=== PATIENT | female | born 2000 | race Caucasian/White ===

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

== ENCOUNTER → 2022-02-02 16:29 | Outpatient (CLI) | payer BC, OTHER, SELFPAY ==
[2022-02-02 18:21] LABS: Basophils # 0.1 K/mm3 (0-0.2); Basophils % 0.7 % (0.1-2.0); Eosinophils # 0.2 K/mm3 (0.0-0.4); Eosinophils % 1.6 % (0.1-12.0); Hematocrit 40.6 % (37.0-47.0); Hemoglobin 12.4 g/dL (12.2-16.2); Lymphocytes # 3.4 K/mm3 (0.7-4.5); Lymphocytes % 28.7 % (10-50); Mean Corpuscular HGB Conc 30.6 g/dL (31.8-35.4); Mean Corpuscular Volume 91.4 fl (81-99); Mean Platelet Volume 7.2 fl (7.4-10.4); Monocytes # 0.6 K/mm3 (0.1-1.0); Monocytes % 4.9 % (1.7-9.3); Neutrophils # 7.7 K/mm3 (1.8-7.8); Neutrophils % 64.2 % (37.0-80.0); Platelet Count 461 K/mm3 (142-424); Red Blood Count 4.45 M/mm3 (4.20-5.40); Red Cell Distribution Width 13.9 % (11.5-17.5); White Blood Count 11.9 K/mm3 (4.5-13.0)
[2022-02-02 20:44] LABS: Alanine Aminotransferase 24 U/L (12-78); Albumin/Globulin Ratio 1.4 (1.1-1.8); Alkaline Phosphatase 109 U/L (38-126); Anion Gap 16.5 mEq/L (5-15); Aspartate Amino Transferase 29 U/L (14-36); Blood Urea Nitrogen 19 mg/dl (7-17); Calcium 8.9 mg/dl (8.4-10.2); Carbon Dioxide 28 mmol/L (22.0-30.0); Chloride 98 mmol/L (98-107); Estimated Glomerular Filt Rate 80 ml/min (>60); GFR (African American) 97 ML/MIN (>60); Globulin 2.9 g/dL (1.3-3.2); Glucose 95 mg/dl (74-100); Potassium 4.5 mmoL/L (3.5-5.1); Sodium 138 mmol/L (136-145); Total Protein,Serum 6.9 g/dl (6.3-8.2)
[2022-02-02 20:54] LABS: Bilirubin,Total < 0.1 mg/dl (0.2-1.3)
[2022-02-02 20:55] LABS: Free T4 (Free Thyroxine) 1.42 ng/dl (0.78-2.19)
[2022-02-02 20:56] LABS: Hemoglobin A1C 5.7 % (4.0-6.0)
[2022-02-02 21:03] LABS: 25-OH Vitamin D, Total 69.3 ng/mL (30-100)
[2022-02-02 21:11] LABS: Thyroid Stimulating Hormone 1.68 uIU/mL (0.465-4.68)
[2022-02-02 21:29] LABS: Vitamin B12 323 pg/mL (239-931)
== END ==
PROVIDERS: PCP Nurse Practitioner Family; Visit Provider Nurse Practitioner Family
DX: R53.83 Other fatigue (principal); K75.81 Nonalcoholic steatohepatitis (NASH); E55.9 Vitamin D deficiency, unspecified; R73.03 Prediabetes
CPT/HCPCS: 36415; 80053; 82306; 82607; 83036; 84439; 84443; 85025

== ENCOUNTER 2022-04-14 06:03 | Emergency (ER) | payer BC, OTHER, SELFPAY ==
[2022-04-14 06:24] VITALS: BP 114/81; PULSE 85; RESP 16; TEMP 36.6; O2SAT 99; BMI 44.6
[2022-04-14 06:30] VITALS: BP 116/83; PULSE 72; O2SAT 99
--- NOTE | 2022-04-14 06:33 | XR_ITS ---
PROCEDURE INFORMATION: Exam: XR Chest Exam date and time: 04/14/2022 7:27 AM Age: 22 years old Clinical indication: Chest wall pain; Additional info: Fall TECHNIQUE: Imaging protocol: Radiologic exam of the chest. Views: 2 views. COMPARISON: CR XR CHEST 2V 08/28/2021 4:26 PM FINDINGS: Lungs: Unremarkable. No consolidation. Pleural spaces: Unremarkable. No pleural effusion. No pneumothorax. Heart/Mediastinum: Unremarkable. No cardiomegaly. Bones/joints: Unremarkable. IMPRESSION: No acute findings.
--- NOTE | 2022-04-14 06:34 | CT_ITS ---
PROCEDURE INFORMATION: Exam: CT Lumbar Spine Without Contrast Exam date and time: 04/14/2022 7:21 AM Age: 22 years old Clinical indication: Low back pain; Additional info: Fall TECHNIQUE: Imaging protocol: Computed tomography of the lumbar spine without contrast. Radiation optimization: All CT scans at this facility use at least one of these dose optimization techniques: automated exposure control; mA and/or kV adjustment per patient size (includes targeted exams where dose is matched to clinical indication); or iterative reconstruction. COMPARISON: US ABDOMEN LIMITED 01/15/2021 8:28 AM FINDINGS: Bones/joints: Acute anterior superior L1 compression fracture with 20% loss of height. Normal alignment. L1-L2: No significant disc protrusion. No severe spinal canal stenosis. No significant neural foraminal narrowing. L2-L3: No significant disc protrusion. No severe spinal canal stenosis. No significant neural foraminal narrowing. L3-L4: No significant disc protrusion. No severe spinal canal stenosis. No significant neural foraminal narrowing. L4-L5: No significant disc protrusion. No severe spinal canal stenosis. No significant neural foraminal narrowing. L5-S1: No significant disc protrusion. No severe spinal canal stenosis. No significant neural foraminal narrowing. Soft tissues: Unremarkable. IMPRESSION: Acute L1 compression fracture described above.
--- NOTE | 2022-04-14 06:34 | CT_ITS ---
PROCEDURE INFORMATION: Exam: CT Pelvis Without Contrast; Skeletal Exam date and time: 04/14/2022 7:28 AM Age: 22 years old Clinical indication: Pelvic pain; Additional info: Fall TECHNIQUE: Imaging protocol: Computed tomography of the pelvis without contrast. Exam focused on the skeleton. Radiation optimization: All CT scans at this facility use at least one of these dose optimization techniques: automated exposure control; mA and/or kV adjustment per patient size (includes targeted exams where dose is matched to clinical indication); or iterative reconstruction. COMPARISON: CT LUMBAR SPINE WO CON 04/14/2022 7:21 AM FINDINGS: Bones/joints: Unremarkable. No acute fracture. No dislocation. Soft tissues: Unremarkable. IMPRESSION: No acute findings.
[2022-04-14 06:38] LABS: Microscopic, Urine URINE MICROSCOPIC (MICROSCOPIC)
[2022-04-14 06:45] LABS: Appearance,Urine SL CLOUDY (Clear); Blood, Urine Negative (Negative); Color,Urine YELLOW (Yellow); Glucose,Urine (UA) Negative (Negative); Ketones,Urine Negative (Negative); Leukocyte Esterase,Urine TRACE (Negative); Nitrate,Urine Negative (Negative); PH,Urine 5.5 (5.0-8.5); Protein,Urine TRACE (Negative); Specific Gravity, Urine >= 1.030 (1.005-1.030); Urobilinogen,Urine 0.2 EU/dl (0.2)
[2022-04-14 06:51] LABS: Urine Pregnancy, HCG Qual. Negative (Negative)
[2022-04-14 06:54] LABS: Bilirubin,Urine 1+ (Negative)
[2022-04-14 06:57] LABS: RBC,Urine Occasional #/hpf (0-3)
[2022-04-14 06:58] LABS: Bacteria,Urine 2+ /lpf
[2022-04-14 07:00] VITALS: PULSE 80; O2SAT 97
--- NOTE | 2022-04-14 07:13 | HMH.EDFALL ---
Discharge Plan Disposition Patient Disposition: Home, Self-Care Chief Complaint: Fall Prescriptions Prescriptions: No Action levocetirizine [Xyzal] 2.5 mg/5 mL solution 5 mg PO QHS PRN bupropion HCl 150 mg tablet extended release 24 hr 150 mg PO DAILY Slow Fe 142 mg (45 mg iron) tablet extended release 284 mg PO DAILY ergocalciferol (vitamin D2) 1,250 mcg (50,000 unit) capsule 1,250 mcg PO WEEKLY norgestimate-ethinyl estradiol [Tri-Sprintec (28)] 0.18/0.215/0.25 mg-35 mcg (28) tablet 1 tab PO DAILY pioglitazone-metformin 15-500 mg tablet 1 tab PO DAILY sucralfate [Carafate] 1 gram tablet 1 g PO BID calcium polycarbophil [FiberCon] 625 mg tablet 1,250 mg PO DAILY ijjgzatrfkfbcfi-eehhpzszj-VE 118 ML syrup 5 ml PO Q6HP PRN (Reason: Cough) Qty: 240 0RF Referrals Follow up/Referrals: Manisha Dhillon APRN [Primary Care Provider] - See instructions Francisco Javier Knox MD [Staff Physician] - See instructions Clinical Impressions Clinical Impression: Closed compression fracture of lumbar vertebra Instructions Patient Instructions: DI for Vertebral Fracture Discharge ED Provider: Kenny Wakefield Fall HPI General Chief Complaint: Fall Stated Complaint: Low back pain; Fell AO 0545 Time Seen by Provider: 04/14/22 07:13 Mode of Arrival: Ambulatory Source of Information: Patient Limitations: No Limitations Description of Symptoms (Recalled from ER Triage Doc. by RN): pt stated that she slipped and fell on ice hit her but but states she is having pain up to mid back 12/31 pt states she has mild disc degenerative disease History of Present Illness HPI Narrative: slipped on ice and fell on back with pain - no loc - MD complaint: fall Onset (ago): hour(s) Fall from: standing Fall witnessed: no Place fall occurred: home Loss of consciousness: none Prolonged down time: no Symptoms prior to fall: none Context: tripped/slipped Location of injury: back and buttocks Severity: moderate Associated symptoms (after fall): denies Related Data Home Medications Medication Instructions Recorded Confirmed levocetirizine 2.5 mg/5 mL oral 5 mg PO QHS PRN 11/06/20 08/13/21 solution (Xyzal) norgestimate-ethinyl estradiol 1 tab PO DAILY 11/06/20 08/13/21 0.18 mg/0.215mg/0.25mg-35 mcg(28)tablet (Tri-Sprintec (28)) bupropion HCl 150 mg 24 hr tablet, 150 mg PO DAILY 01/09/21 08/13/21 extended release ergocalciferol (vitamin D2) 1,250 1,250 mcg PO WEEKLY 01/09/21 08/13/21 mcg (50,000 unit) capsule ferrous sulfate 142 mg (45 mg 284 mg PO DAILY 01/09/21 08/13/21 iron) tablet,extended release (Slow Fe) calcium polycarbophil 625 mg 1,250 mg PO DAILY 08/13/21 08/13/21 tablet (FiberCon) pioglitazone 15 mg-metformin 500 1 tab PO DAILY 08/13/21 08/13/21 mg tablet sucralfate 1 gram tablet (Carafate) 1 g PO BID 08/13/21 08/13/21 Previous Rx's Medication Instructions Recorded slvalctnmatnnzr-meykainjhiqdzkz-QB 5 ml PO Q6HP PRN Cough #240 mL 05/20/21 2 mg-30 mg-10 mg/5 mL oral syrup Allergies Allergy/AdvReac Type Severity Reaction Status Date / Time No Known Allergies Allergy Verified 08/13/21 15:58 PFSH PFSH Social History Smoking Status: Current every day smoker alcohol intake: never substance use type: denies use current occupational status: employed Travel in the last 8 weeks: None household members: family housing: house number of children: 0 ROS Obtained: Yes All systems reviewed & no additional complaints except as documented Physical Exam General General appearance: alert Head Head exam: normocephalic Eye Eye exam: Present PERRL and EOMI ENT ENT exam: Present mucous membranes moist Neck Neck exam: Present trachea midline Respiratory Respiratory exam: Present normal lung sounds bilaterally; Absent respiratory distress Cardiovascular Cardiovascular exam: Present regular rate Abdominal Exam Abdominal exam: Present
--- NOTE | 2022-04-14 07:17 | CT_ITS ---
PROCEDURE INFORMATION: Exam: CT Thoracic Spine Without Contrast Exam date and time: 04/14/2022 7:24 AM Age: 22 years old Clinical indication: Pain in thoracic spine; Additional info: Fall TECHNIQUE: Imaging protocol: Computed tomography of the thoracic spine without contrast. Radiation optimization: All CT scans at this facility use at least one of these dose optimization techniques: automated exposure control; mA and/or kV adjustment per patient size (includes targeted exams where dose is matched to clinical indication); or iterative reconstruction. COMPARISON: CR XR THORACIC SPINE 3V 12/16/2020 2:58 PM FINDINGS: Bones/joints: Acute anterior superior L1 compression fracture with 20% loss of height. Normal alignment. T1-T2: No significant disc protrusion. No severe spinal canal stenosis. No significant neural foraminal narrowing. T2-T3: No significant disc protrusion. No severe spinal canal stenosis. No significant neural foraminal narrowing. T3-T4: No significant disc protrusion. No severe spinal canal stenosis. No significant neural foraminal narrowing. T4-T5: No significant disc protrusion. No severe spinal canal stenosis. No significant neural foraminal narrowing. T5-T6: No significant disc protrusion. No severe spinal canal stenosis. No significant neural foraminal narrowing. T6-T7: No significant disc protrusion. No severe spinal canal stenosis. No significant neural foraminal narrowing. T7-T8: No significant disc protrusion. No severe spinal canal stenosis. No significant neural foraminal narrowing. T8-T9: No significant disc protrusion. No severe spinal canal stenosis. No significant neural foraminal narrowing. T9-T10: No significant disc protrusion. No severe spinal canal stenosis. No significant neural foraminal narrowing. T10-T11: No significant disc protrusion. No severe spinal canal stenosis. No significant neural foraminal narrowing. T11-T12: No significant disc protrusion. No severe spinal canal stenosis. No significant neural foraminal narrowing. T12-L1: No significant disc protrusion. No severe spinal canal stenosis. No significant neural foraminal narrowing. Calcified right hilar and mediastinal granulomas. IMPRESSION: Acute L1 compression fracture described above. Calcified right hilar and mediastinal granulomas.
--- NOTE | 2022-04-14 07:17 | XR_ITS ---
PROCEDURE INFORMATION: Exam: XR Pelvis Exam date and time: 04/14/2022 7:29 AM Age: 22 years old Clinical indication: Pelvic pain; Additional info: Fall TECHNIQUE: Imaging protocol: Radiologic exam of the pelvis. Views: 1 or 2 view. COMPARISON: CT PELVIS WO CON 04/14/2022 7:28 AM FINDINGS: Bones/joints: Unremarkable. No acute fracture. Soft tissues: Unremarkable. IMPRESSION: No acute findings.
--- NOTE | 2022-04-14 07:30 | PC.NURSE ---
pt in radiology
--- NOTE | 2022-04-14 07:41 | PC.NURSE ---
pt return from radiology
[2022-04-14 08:00] VITALS: BP 137/100; PULSE 89; O2SAT 97
[2022-04-14 08:31] VITALS: BP 129/91; PULSE 72; O2SAT 98
--- NOTE | 2022-04-14 08:33 | PC.NURSE ---
speaking with ALLY
--- NOTE | 2022-04-14 08:38 | PC.NURSE ---
Updated pt and family on POC
[2022-04-14 08:56] VITALS: BP 132/98; PULSE 83; RESP 16; TEMP 36.6; O2SAT 97
== END 2022-04-14 08:56 | disposition home or self-care (01) ==
PROVIDERS: Emergency Provider Emergency Medicine; PCP Nurse Practitioner Family
DX: M48.54XA Collapsed vertebra, not elsewhere classified, thoracic region, initial encounter for fracture (principal); R05.9 Cough, unspecified; F17.200 Nicotine dependence, unspecified, uncomplicated; Z79.1 Long term (current) use of non-steroidal anti-inflammatories (NSAID); Z79.3 Long term (current) use of hormonal contraceptives; W00.0XXA Fall on same level due to ice and snow, initial encounter; Y93.21 Activity, ice skating
CPT/HCPCS: 71046; 72128; 72131; 72170; 72192; 81001; 81025; 87086; 99285

== ENCOUNTER → 2022-05-14 16:46 | Outpatient (CLI) | payer BC, OTHER, SELFPAY ==
[2022-05-14 19:22] LABS: Alanine Aminotransferase 22 U/L (12-78); Albumin Level 4.2 g/dl (3.5-5.0); Albumin/Globulin Ratio 1.4 (1.1-1.8); Alkaline Phosphatase 144 U/L (38-126); Anion Gap 13.6 mEq/L (5-15); Aspartate Amino Transferase 27 U/L (14-36); Bilirubin,Total 0.2 mg/dl (0.2-1.3); Blood Urea Nitrogen 18 mg/dl (7-17); Calcium 9.6 mg/dl (8.4-10.2); Carbon Dioxide 24 mmol/L (22.0-30.0); Chloride 106 mmol/L (98-107); Estimated Glomerular Filt Rate 80 ml/min (>60); GFR (African American) 97 ML/MIN (>60); Glucose 96 mg/dl (74-100); Potassium 4.6 mmoL/L (3.5-5.1); Sodium 139 mmol/L (136-145); Total Protein,Serum 7.2 g/dl (6.3-8.2)
== END ==
PROVIDERS: PCP Nurse Practitioner Family; Visit Provider Nurse Practitioner Family
DX: R94.5 Abnormal results of liver function studies (principal); K75.81 Nonalcoholic steatohepatitis (NASH); K29.00 Acute gastritis without bleeding; R14.0 Abdominal distension (gaseous); K25.9 Gastric ulcer, unspecified as acute or chronic, without hemorrhage or perforation
CPT/HCPCS: 36415; 80053

== ENCOUNTER → 2022-08-25 09:26 | Outpatient (CLI) | payer OTHER, SELFPAY | PROVIDERS: PCP Nurse Practitioner Family; Visit Provider Anesthesiology Pain Medicine | DX: M54.50 Low back pain, unspecified (principal) ==

== ENCOUNTER 2022-10-13 12:35 | Emergency (ER) | payer BC, OTHER, SELFPAY ==
[2022-10-13 12:45] VITALS: BP 117/58; PULSE 80; RESP 18; TEMP 36.8; O2SAT 98; BMI 44.6
--- NOTE | 2022-10-13 13:27 | EXP.UTC ---
Discharge Plan Disposition Patient Disposition: Home, Self-Care Condition: Good Prescriptions Prescriptions: New ondansetron 4 mg tablet,disintegrating 4 mg PO Q8H PRN (Reason: nausea and vomiting) Qty: 10 0RF No Action levocetirizine [Xyzal] 2.5 mg/5 mL solution 5 mg PO QHS PRN bupropion HCl 150 mg tablet extended release 24 hr 150 mg PO DAILY Slow Fe 142 mg (45 mg iron) tablet extended release 284 mg PO DAILY ergocalciferol (vitamin D2) 1,250 mcg (50,000 unit) capsule 1,250 mcg PO WEEKLY norgestimate-ethinyl estradiol [Tri-Sprintec (28)] 0.18/0.215/0.25 mg-35 mcg (28) tablet 1 tab PO DAILY pioglitazone-metformin 15-500 mg tablet 1 tab PO DAILY sucralfate [Carafate] 1 gram tablet 1 g PO BID calcium polycarbophil [FiberCon] 625 mg tablet 1,250 mg PO DAILY hydrocodone-acetaminophen 5-325 mg tablet 1 tab PO TID Qty: 15 0RF lzsvdjtwbmtzllw-feythxvcb-GF 118 ML syrup 5 ml PO Q6HP PRN (Reason: Cough) Qty: 240 0RF Referrals Follow up/Referrals: Manisha Dhillon APRN [Primary Care Provider] - See instructions Activity Restrictions/Add. Instructions Additional Instructions/Restrictions: Drink extra fluids with and between meals. If you have difficulty drinking, try very small amounts of water or suck on ice chips. ? Avoid fruit juices, as these do not replace minerals and can actually increase diarrhea. ? Children and adults can use sports drinks to replenish electrolytes. Younger children and infants should use products formulated for children, like oral rehydration solutions. ? Eat food in small amounts and let your stomach recover. ? Get lots of rest. You may feel tired or weak. ? No greasy or fried foods for the next 24-48 hours BRAT diet Bananas Rice Apples and Lyman ? Make sure to drink plenty of liquids ? Return if needed ? Straight to ER if any life threatening symptoms ? Zofran as prescribed ? You was given an outpatient order for diarrhea panel, please collect specimen and bring back to outpatient lab then call back to the [facility] or follow up with family doctor for results ? Follow up with family doctor in the next 48-72 hours if no improvement or any worsening of symptoms Clinical Impressions Clinical Impression: Diarrhea Instructions Patient Instructions: Diarrhea, DI for Nausea -- Adult Discharge ED Provider: Anamaria Campbell [facility] HPI General Stated complaint: Nausea abd pain Mode of Arrival: Ambulatory Source of Information: Patient Limitations: No Limitations Time Seen by Provider: 10/13/22 13:27 Description of Symptoms (Recalled from Triage Doc. by RN): PATIENT C/O NAUSEA, DIARRHEA, AND MID ABDOMINAL PAIN THAT STARTED WEDNESDAY. SHE STATES ABDOMINAL GETS BETTER AFTER A BOWEL MOVEMENT. REPORTS A HISTORY OF IBS HEENT Symptoms (Recalled from RN notes): No Resp Symptoms (Recalled from RN notes): No Skin Symptoms (Recalled from RN notes): No MS Symptoms (Recalled from RN notes): No Functional Status (Recalled from RN notes): WNL History of Present Illness Provider Complaint: Patient states that she started over the weekend with diarrhea and nausea States that she hasnt vomited but did feel nausea States that she had some cramping right before diarrhea but then felt better Denies fever or abdominal pain states that it more so like cramping just before diarrhea then improved after having a BM Related Data Home Medications Medication Instructions Recorded Confirmed levocetirizine 2.5 mg/5 mL oral 5 mg PO QHS PRN 11/06/20 08/13/21 solution (Xyzal) norgestimate-ethinyl estradiol 1 tab PO DAILY 11/06/20 08/13/21 0.18 mg/0.215mg/0.25mg-35 mcg(28)tablet (Tri-Sprintec (28)) bupropion HCl 150 mg 24 hr tablet, 150 mg PO DAILY 01/09/21 08/13/21 extended release ergocalciferol (vitamin D2) 1,250 1,250 mcg PO WEEKLY 01/09/21 08/13/21 mcg (50,000 unit) capsule rhiannon
[2022-10-13 14:02] VITALS: BP 123/87; PULSE 76; RESP 16; TEMP 37; O2SAT 99
== END 2022-10-13 14:03 | disposition home or self-care (01) ==
PROVIDERS: Emergency Provider Nurse Practitioner; PCP Nurse Practitioner Family
DX: R19.7 Diarrhea, unspecified (principal); R10.819 Abdominal tenderness, unspecified site; R11.0 Nausea; F17.210 Nicotine dependence, cigarettes, uncomplicated
CPT/HCPCS: 99212; 99214; G0463

== ENCOUNTER 2023-02-10 14:21 | Emergency (ER) | payer OTHER, SELFPAY ==
[2023-02-10 15:12] VITALS: BP 0/0; PULSE 0; RESP 0; TEMP -17.7; TEMP 0
== END 2023-02-10 15:12 | disposition home or self-care (01) ==
LOC: UTC 14:25
PROVIDERS: Emergency Provider Nurse Practitioner; PCP Nurse Practitioner Family
DX: Z53.21 Procedure and treatment not carried out due to patient leaving prior to being seen by health care provider (principal)

== ENCOUNTER → 2023-02-11 23:13 | Outpatient (CLI) | payer OTHER, SELFPAY ==
[2023-02-11 18:29] LABS: Adenovirus,PCR Not Detected (NotDetected); Bordetella Pertussis Not Detected (NotDetected); Chlamydophila Pneumoniae, PCR Not Detected (NotDetected); Coronavirus 19, PCR Not Detected (NotDetected); Coronavirus 229E Not Detected (NotDetected); Coronavirus NL63 Not Detected (NotDetected); Coronavirus OC43 Not Detected (NotDetected); Coronovirus HKU1,PCR Not Detected (NotDetected); Human Metapneumovirus Not Detected (NotDetected); Influenza A, PCR Not Detected (NotDetected); Influenza AH1, 2009 Not Detected (NotDetected); Influenza AH1, PCR Not Detected (NotDetected); Influenza AH3,PCR Not Detected (NotDetected); Influenza B, PCR Not Detected (NotDetected); Mycoplasma Pneumoniae, PCR Not Detected (NotDetected); Parainfluenza 1, PCR Not Detected (NotDetected); Parainfluenza 2, PCR Not Detected (NotDetected); Parainfluenza 3, PCR Not Detected (NotDetected); Parainfluenza 4, PCR Not Detected (NotDetected); Respiratory Syncytial Virus Not Detected (NotDetected); Rhinovirus/Enterovirus Not Detected (NotDetected)
== END ==
PROVIDERS: PCP Student in an Organized Health Care Education/Training Program; Visit Provider Student in an Organized Health Care Education/Training Program
DX: R05.9 Cough, unspecified (principal); R51.9 Headache, unspecified; J02.9 Acute pharyngitis, unspecified; Z20.828 Contact with and (suspected) exposure to other viral communicable diseases
CPT/HCPCS: 87581; 87632; 87798

== ENCOUNTER 2023-05-31 19:58 | Outpatient (CLI) | payer OTHER, SELFPAY | END 2023-05-31 23:59 | LOC: LAB.DROPOF 19:59 | PROVIDERS: PCP Student in an Organized Health Care Education/Training Program; Visit Provider Student in an Organized Health Care Education/Training Program | DX: L03.316 Cellulitis of umbilicus (principal); A49.9 Bacterial infection, unspecified | CPT/HCPCS: 87070; 87205 ==

== ENCOUNTER 2024-07-12 12:48 | Emergency (ER) | payer BC, SELFPAY ==
[2024-07-12 12:49] VITALS: BP 125/77; PULSE 98; RESP 18; TEMP 36.8; O2SAT 99; BMI 41.5
[2024-07-12 12:53] VITALS: BP 125/77; PULSE 91; O2SAT 100
--- NOTE | 2024-07-12 12:59 | HMH.EDGENADL ---
Discharge Plan Disposition Patient Disposition: Home, Self-Care Condition: Good Prescriptions Prescriptions: New omeprazole 40 mg capsule,delayed release(DR/EC) 40 mg PO DAILY Qty: 30 1RF alum-mag hydroxide-simeth [Maalox Advanced] 200-200-20 mg/5 mL suspension 5 ml PO Q3H PRN (Reason: dyspepsia) Qty: 3000 0RF ondansetron 4 mg tablet,disintegrating 4 mg PO Q8H PRN (Reason: nausea and vomiting) 4 Days Qty: 12 0RF No Action budesonide-formoterol [Symbicort] 160-4.5 mcg/actuation HFA aerosol inhaler 1 puff inhalation BID norethindrone-e.estradiol-iron [Loestrin Fe 1.5/30 (28-Day)] 1.5 mg-30 mcg (21)/75 mg (7) tablet 1 tab PO DAILY Qty: 84 6RF pioglitazone-metformin 15-500 mg tablet 1 tab PO DAILY Patient Comments: TAKE ONE TABLET BY MOUTH EVERY DAY Referrals Follow up/Referrals: Yohannes Duarte MD [Primary Care Provider] - See instructions Activity Restrictions/Add. Instructions Additional Instructions/Restrictions: You were evaluated in the emergency department today. 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 Eat a bland diet. See attached instructions. Follow-up closely with your primary care provider. Return to the emergency department for new or worsening symptoms. Clinical Impressions Clinical Impression: Diarrhea, Gastritis Stand Alone Forms Stand Alone Forms: Work/School Release Instructions Patient Instructions: DI for Gastritis, DI for Diarrhea and Traveler's Diarrhea -- Adult Print Language Print Language: Bangladeshi Discharge ED Provider: Regi Rahman General Adult HPI General Chief complaint: Abdominal Pain Stated complaint: abd pain, diarrhea, acid reflux, nausea Time Seen by Provider: 07/12/24 12:53 Mode of Arrival: Ambulatory Source of Information: Patient Limitations: No Limitations Description of Symptoms (Recalled from ER Triage Doc. by RN): Patient reports epigastric pain, diarrhea, acid reflux and nausea for 2 weeks. States she used to take Prilosec for ulcers however has not been taking it for a year. History of Present Illness HPI narrative: This patient is a 24-year-old female with a history of obesity, type 2 diabetes, bipolar disorder, GERD, and IBS presenting to the emergency department for evaluation with concern for 2 weeks of epigastric pain, nausea, acid reflux, and diarrhea. Diarrhea nonbloody nonmelanotic. Patient states she is on Prilosec for history of ulcers but has not taken it in a year. She notes she has been taking Pepcid and Tums with some improvement, however the symptoms have been persistent and prompted evaluation. She has not seen anyone previously for this. She has history of EGD which was reassuring but denies any prior abdominal surgeries. She does smoke cigarettes and marijuana. Related Data Home Medications ?Medication ?Instructions ?Recorded ?Confirmed budesonide-formoterol HFA 160 1 puff inhalation BID 05/31/23 07/12/24 mcg-4.5 mcg/actuation aerosol inhaler (Symbicort) pioglitazone 15 mg-metformin 500 1 tab PO DAILY 06/13/24 07/12/24 mg tablet Previous Rx's ?Medication ?Instructions ?Recorded norethindrone 1.5 mg-ethinyl 1 tab PO DAILY #84 tabs 03/14/24 estradiol 30 mcg(21)/iron 75 mg(7) tablet (Loestrin Fe 1.5/30 (28-Day)) aluminum-mag hydroxide-simethicone 5 ml PO Q3H PRN dyspepsia #3,000 mL 07/12/24 200 mg-200 mg-20 mg/5 mL oral susp (Maalox Advanced) omeprazole 40 mg capsule,delayed 40 mg PO DAILY #30 caps 07/12/24 release ondansetron 4 mg disintegrating 4 mg PO Q8H PRN nausea and 07/12/24 tablet vomiting 4 days #12 tabs Allergies Allergy/AdvReac Type Severity Reaction Status Date / Time No Known Allergies Allergy Verified 06/13/24 10:33 [facility] Disclaimer: The information contained in this section may have been updated after the patient was seen, as this information can be updated by other users. Medical History Contraceptive management Restless legs syndrome (RLS) Type 2 diabetes mellitus Bipolar II disorder Depression Seasonal allergies Closed compression fracture of lumbar vertebra Tachycardia Surgical History No significant past surgical history Family History Family/Other Diabetes Hypertension Social History Smoking Status: Current every day smoker alcohol intake: never substance use type: denies use current occupational status: employed Travel in the last 8 weeks: None household members: family housing: house number of children: 0 Have you lived/traveled outside US in past 30 days?: No Contact w/someone who lives/traveled outside US past 30 days?: No Exposure to someone with infectious disease in past 14 days?: No Do you have a fever (greater than 100.4 F or 38 C)?: No Have you tested positive for COVID-19: No Exposed to someone with COVID-19 in past 14 days?: No Do you have a sore throat?: No Do you have a cough?: No Do you have any weakness?: No Do you have any diarrhea?: Yes Are you experiencing any unusual bleeding?: No Do you have any muscle aches/pain?: No Do you have any abdominal pain?: Yes Are you experiencing loss of taste or smell?: No Other Medical History Have you received the Flu Vaccine for this season: Yes Have you received the Pneumonia Vaccine: No ROS Obtained: Yes All systems reviewed & no additional complaints except as documented Physical Exam General General appearance: alert and in no apparent distress Head Head exam: atraumatic and normocephalic Eye Eye exam: Present normal appearance, PERRL and EOMI ENT ENT exam: Present normal exam, normal oropharynx, mucous membranes moist and normal external ear exam Neck Neck exam: Present normal inspection, full ROM and trachea midline; Absent tenderness Chest Chest inspection: Present normal inspection and symmetric chest wall rise; Absent tenderness Respiratory Respiratory exam: Present normal lung sounds bilaterally; Absent respiratory distress, wheezes, stridor or accessory muscle use Cardiovascular Cardiovascular exam: Present regular rate and normal rhythm Abdominal Exam Abdominal exam: Present soft and tenderness (Epigastric, no right upper quadrant tenderness); Absent distention, guarding, rebound or rigidity Extremities Exam Extremities exam: Present normal inspection, full ROM and normal capillary refill; Absent tenderness or edema Back Exam Back exam: Present normal inspection and full ROM; Absent tenderness Neurological Exam Neurological exam: Present alert, oriented X3, CN II-XII intact and normal gait; Absent motor sensory deficit Psychiatric Psychiatric exam: Present normal affect and normal mood Skin Skin exam: Present warm and dry Medical Decision Making Medical Records Medical records reviewed: Yes I reviewed the patient's medical records. Screening: Per USPSTF and CDC recommendations, given the prevalence of disease in our region, it is our hospital?s policy to screen for HIV and viral Hepatitis for all patients aged 18 and over and those with ongoing risk factors. Scott Inquiry Pt receiving controlled substance: No Vital Signs: 07/12/24 12:49 07/12/24 12:53 07/12/24 13:30 Temperature 98.3 F Temperature Source Oral Pulse Rate 91 H 89 Pulse Rate [Radial] 98 H Respiratory Rate 18 Blood Pressure 125/77 Blood Pressure [Right Arm] 125/77 Blood Pressure Mean [Right Arm] 93 Blood Pressure Source [Right Arm] Automatic Cuff Blood Pressure Position [Right Arm] Sitting 02 Sat by Pulse Oximetry 99 100 96 Oxygen Delivery Method Room Air Room Air Room Air 07/12/24 14:40 07/12/24 14:48 Temperature 98.3 F Temperature Source Pulse Rate 89 87 Pulse Rate [Radial] Respiratory Rate 18 Blood Pressure 115/76 115/76 Blood Pressure [Right Arm] Blood Pressure Mean [Right Arm] Blood Pressure Source [Right Arm] Blood Pressure Position [Right Arm] 02 Sat by Pulse Oximetry 95 Oxygen Delivery Method Room Air Room Air Lab Data Lab results reviewed: Yes I reviewed the patient's lab results. Lab Results 07/12/24 13:06: Urine Color Yellow, Urine Appearance Clear, Urine pH 6.5, Ur Specific Christiana 1.025, Urine Protein Negative, Urine Glucose (UA) Negative, Urine Ketones Negative, Urine Blood Negative, Urine Nitrate Negative, Urine Bilirubin Negative, Urine Urobilinogen 0.2, Ur Leukocyte Esterase Negative, Urine RBC None, Urine WBC None, Ur Squamous Epith Cells 10-20, Urine Bacteria Trace 07/12/24 13:19: WBC 8.4, RBC 4.83, Hgb 13.7, Hct 41.9, MCV 86.7, MCH 28.4, MCHC 32.7, RDW 13.7, Plt Count 359, MPV 8.9, Neut % (Auto) 57.5, Lymph % (Auto) 31.5, Hendricks % (Auto) 9.2, Eos % (Auto) 1.5, Baso % (Auto) 0.2, Neut # (Auto) 4.8, Lymph # (Auto) 2.7, Hendricks # (Auto) 0.8, Eos # (Auto) 0.1, Baso # (Auto) 0.0, Sodium 139, Potassium 3.8, Chloride 105, Carbon Dioxide 23, Anion Gap 14.8, BUN 15, Creatinine 0.90, Estimated Creat Clear 95, Estimated GFR 78, Est GFR ( Amer) 95, Glucose 113 H, Calcium 9.2, Magnesium 1.9, Total Bilirubin 0.6, AST 43 H, ALT 36, Alkaline Phosphatase 104, Total Protein 8.0, Albumin 4.8, Globulin 3.2, Albumin/Globulin Ratio 1.5, Lipase 71, Serum HCG, Qual Negative, HCV Ab OSVALDO w/Rflx PCR Qn Negative, HIV Ag/Ab Combo Qual Negative 07/12/24 13:19 07/12/24 13:19 Orders (Tests/Meds): ED MEDICATIONS Discontinued Medications Generic Name Dose Route Start Last Admin Trade Name Freq PRN Reason Stop Dose Admin Acetaminophen 1,000 mg 07/12/24 12:58 07/12/24 13:03 Acetaminophen 1,000mg/100ml Vial IV 07/12/24 12:59 1,000 mg ONCE ONE Administration Belladonna Alkaloids 60 ml 07/12/24 12:58 07/12/24 13:04 Belladonna Alkaloids 60 Ml Ml PO 07/12/24 12:59 60 ml ONCE ONE Administration Lactated Ringer's 1,000 mls @ 999 mls/hr 07/12/24 12:58 07/12/24 13:03 Lactated Ringer's 1000 Ml Bag IV 07/12/24 13:58 999 mls/hr .Q1H1M ONE Administration Ondansetron HCl 4 mg 07/12/24 12:58 07/12/24 13:04 Ondansetron 4mg/2ml Vial IV 07/12/24 12:59 4 mg ONCE ONE Administration Pantoprazole Sodium 40 mg 07/12/24 12:58 07/12/24 13:04 Pantoprazole 40mg Vial IV 07/12/24 12:59 40 mg ONCE ONE Administration Sodium Chloride 10 ml 07/12/24 12:58 07/12/24 13:04 Sodium Chloride 0.9% 10ml Vial IV 08/11/24 12:57 10 ml NEEDED PRN Administration dilute protonix ORDERS Category Date Time Status Complete Blood Count Auto Diff Stat Lab 07/12/24 13:19 Completed Comprehensive Metabolic Panel Stat Lab 07/12/24 13:19 Completed HIV Combo Stat Lab 07/12/24 13:19 Completed Hepatitis C Ab Qual. W/ RFX Stat Lab 07/12/24 13:19 Completed Lipase Stat Lab 07/12/24 13:19 Completed MAG [Magnesium] Stat Lab 07/12/24 13:19 Completed Serum [HCG Qualitative, Serum] Stat Lab 07/12/24 13:19 Completed UA [Urinalysis and Microscopic] Stat Lab 07/12/24 13:06 Completed Medical Decision Narrative: In summary, this patient is a 24-year-old female presenting to the Emergency Department for evaluation of epigastric pain, nausea, heartburn, diarrhea. Differential diagnoses considered include but are not limited to gastritis, peptic ulcer disease, pancreatitis, colitis, cholecystitis, IBS flare. Ruling out the most morbid conditions drove assessment. It should be noted patient's history includes IBS, GERD, obesity, diabetes which are not at goal therapy. This complicates all aspects of care by increasing patient's risk for morbidity. On exam, the patient has epigastric tenderness but no rebound or guarding. She has no right upper quadrant tenderness, no right lower lower quadrant tenderness. Abdomen is soft and nondistended. I feels likely is gastritis versus pancreatitis. Workup included CBC, CMP, lipase, test, urinalysis, diarrhea panel On reassessment, the patient is resting company with normal vital signs on cardiac telemetry. Abdominal exam is benign. Labs are reassuring with reassuring CBC with no significant leukocytosis. Chemistry is reassuring with only very mildly elevated AST, which is nonspecific. Urine is not concerning for infection. She is feeling better, I have low concern for surgical intra-abdominal pathology and feel that she is appropriate for discharge home with prescriptions for Zofran, pantoprazole, Maalox to treat symptoms and instructions for close follow-up with primary care. Strict return precautions were given. Critical Care Critical Care Time Critical Care Time: No
[2024-07-12] MEDS: LACTATED RINGERS 1000ML 1,000 ML 999 ML IV (13:03)
[2024-07-12] MEDS: ACETAMINOPHEN 1,000MG/100ML VIAL 1000 MG IV (13:03)
[2024-07-12] MEDS: PANTOPRAZOLE 40MG VIAL 40 MG IV (13:04)
[2024-07-12] MEDS: SODIUM CHLORIDE 0.9% 10ML VIAL 10 ML IV (13:04)
[2024-07-12] MEDS: ONDANSETRON 4MG/2ML VIAL 4 MG IV (13:04)
[2024-07-12] MEDS: BELLADONNA ALKALOIDS 60 ML ML PO (13:04)
[2024-07-12 13:10] LABS: Microscopic, Urine URINE MICROSCOPIC (MICROSCOPIC)
[2024-07-12 13:11] LABS: Appearance,Urine CLEAR (Clear); Bilirubin,Urine Negative (Negative); Blood, Urine Negative (Negative); Color,Urine YELLOW (Yellow); Glucose,Urine (UA) Negative (Negative); Ketones,Urine Negative (Negative); Leukocyte Esterase,Urine Negative (Negative); Nitrate,Urine Negative (Negative); PH,Urine 6.5 (5.0-8.5); Protein,Urine Negative (Negative); Specific Gravity, Urine 1.025 (1.005-1.030); Urobilinogen,Urine 0.2 EU/dl (0.2)
--- NOTE | 2024-07-12 13:24 | PC.NURSE ---
Attempted to start an IV on this patiet in her L AC, patient stated she began to feel dizzy and lightheaded. I attempted to volleyball coach the patient through some breathing exercises to no avail. Patient was laid supine in the bed. The second attempt was successful in pts R AC, labs collected and sent to the lab.
[2024-07-12 13:30] VITALS: PULSE 89; O2SAT 96
[2024-07-12 13:32] LABS: Basophils % 0.2 % (0.1-2.0); Eosinophils # 0.1 K/mm3 (0.0-0.4); Eosinophils % 1.5 % (0.1-12.0); Hematocrit 41.9 % (37.0-47.0); Hemoglobin 13.7 g/dL (12.2-16.2); Lymphocytes # 2.7 K/mm3 (0.7-4.5); Lymphocytes % 31.5 % (10-50); Mean Corpuscular HGB Conc 32.7 g/dL (31.8-35.4); Mean Corpuscular Hemoglobin 28.4 pg (27.0-31.2); Mean Corpuscular Volume 86.7 fl (81-99); Mean Platelet Volume 8.9 fl (7.4-10.4); Monocytes # 0.8 K/mm3 (0.1-1.0); Monocytes % 9.2 % (1.7-9.3); Neutrophils # 4.8 K/mm3 (1.8-7.8); Neutrophils % 57.5 % (37.0-80.0); Platelet Count 359 K/mm3 (142-424); Red Blood Count 4.83 M/mm3 (4.20-5.40); Red Cell Distribution Width 13.7 % (11.5-17.5); White Blood Count 8.4 K/mm3 (4.8-10.8)
[2024-07-12 13:34] LABS: Bacteria,Urine Trace /lpf
[2024-07-12 13:43] LABS: Albumin Level 4.8 g/dl (3.5-5.0); Chloride 105 mmol/L (98-107); Sodium 139 mmol/L (136-145)
[2024-07-12 13:44] LABS: Potassium 3.8 mmoL/L (3.5-5.1)
[2024-07-12 13:46] LABS: Alanine Aminotransferase 36 U/L (12-78); Albumin/Globulin Ratio 1.5 (1.1-1.8); Alkaline Phosphatase 104 U/L (38-126); Anion Gap 14.8 mEq/L (5-15); Aspartate Amino Transferase 43 U/L (14-36); Bilirubin,Total 0.6 mg/dl (0.2-1.3); Blood Urea Nitrogen 15 mg/dl (7-17); Calcium 9.2 mg/dl (8.4-10.2); Carbon Dioxide 23 mmol/L (22.0-30.0); Creatinine Clearance Estimated 95 mL/min (50-200); Estimated Glomerular Filt Rate 78 ml/min (>60); GFR (African American) 95 ML/MIN (>60); Globulin 3.2 g/dL (1.3-3.2); Glucose 113 mg/dl (74-100); Lipase 71 U/L (23-300)
[2024-07-12 13:47] LABS: Magnesium 1.9 mg/dl (1.6-2.3)
[2024-07-12 14:40] VITALS: BP 115/76; PULSE 89; O2SAT 95
[2024-07-12 14:41] LABS: HIV Combo NEGATIVE (Negative)
--- NOTE | 2024-07-12 14:46 | PC.NURSE ---
ROUNDED ON THE PT. THE PT VOICES THAT SHE DOES NOT NEED ANYTHING AT THIS TIME. CALL LIGHT IS WITHIN REACH OF THE PT.
[2024-07-12 14:48] VITALS: BP 115/76; PULSE 87; RESP 18; TEMP 36.8; O2SAT 95
[2024-07-12 14:48] LABS: Hepatitis C Ab Qual. W/ RFX NEGATIVE (Negative)
[2024-07-12 15:32] LABS: HCG Qualitative, Serum Negative (Negative)
== END 2024-07-12 14:49 | disposition home or self-care (01) ==
PROVIDERS: Emergency Provider Emergency Medicine; PCP Internal Medicine Adolescent Medicine
DX: K29.70 Gastritis, unspecified, without bleeding (principal); R10.13 Epigastric pain; R11.0 Nausea; R19.7 Diarrhea, unspecified; K21.9 Gastro-esophageal reflux disease without esophagitis; Z72.0 Tobacco use
CPT/HCPCS: 80053; 81001; 83690; 83735; 84703; 85025; 86803; 87389; 96361; 96374; 96375; 99284; J0131; J2405; J7120

== ENCOUNTER 2025-05-21 13:25 | Outpatient (CLI) | payer BC, SELFPAY ==
--- OUTSIDE RECORDS SUMMARY | 2024-02-02 06:45 | XMS_ITS ---
Author Organization [place] [facility] Address [address] [place] [address] Care Team Providers Care Mold Unloader Name Role Phone Yohannes Duarte Primary Care Provider Tanvi Loomis [facility] [phone] REASON FOR VISIT reaction to BC patch Encounters Encounter Location Date Provider Diagnosis [place] [address] [address] 02/02/2024 Tanvi Loomis Plan Of Treatment Next Appt Details Provider Name:Tanvi Jauregui ce, 10/15/2025 02:30:00 PM, [address], [address], [place], [address], Progress Notes * Christine BEARDOB: 2 (25 yo F)Acc No.[id number]:02/02/2024 Progress Notes Patient: Arleen Vyas Provider: ANDREW Ruiz :2000 A ge:24 Y S ex:Female Date:02/02/2024 Address:[address] [place], [id number] Pcp:Yohannes Duarte Subjective: * Chief Complaints: * r eaction to BC patch * Electronic signature of Millicent Loomis APRN on 05/21/2025 at 01:29 PM EST Sign off status: Pending * Provider: ANDREW Ruiz Date: 0 02/02/2024 Generated for Fortunato Barrera/Feliberto on: 1 01:29 PM EST
--- OUTSIDE RECORDS SUMMARY | 2024-07-03 05:00 | XMS_ITS ---
Author Organization [facility] Address [address] [place] [address] Care Team Providers Care Skid [address] Man Name Role Phone Yohannes Duarte Primary Care Provider Tanvi Loomis [facility] [phone] REASON FOR VISIT 3 month follow up Encounters Encounter Location Date Provider Diagnosis [facility] [address] [place] [address] 07/03/2024 Tanvi Loomis Plan Of Treatment Next Appt Details Provider Name:Tanvi Jauregui ce, 10/15/2025 02:30:00 PM, [address], [address], [place], [place], [address], Progress Notes * Christine BEARDOB: 2 (25 yo F)Acc No.[id number]:07/03/2024 Progress Notes Patient: Arleen Vyas Provider: ANDREW Ruiz :2000 A ge:24 Y S ex:Female Date:07/03/2024 Address:[address] [id number] Pcp:Yohannes Duarte Subjective: * Chief Complaints: * 3 month follow up * Electronic signature of Millicent Loomis APRN on 05/21/2025 at 01:31 PM EST Sign off status: Pending * Provider: ANDREW Ruiz Date: 0 07/03/2024 Generated for Fortunato Barrera/Feliberto on: 1 01:31 PM EST
--- OUTSIDE RECORDS SUMMARY | 2024-08-26 16:30 | XMS_ITS ---
Author Organization [facility] D [facility] Address [address] [place] [address] Care Team Providers Care Control And Recovery Special Tactics Name Role Phone Yohannes Duarte Primary Care Provider Migration, Provider Unavailable Unavailable Allergies Allergen (clinical drug ingredient) Drug/Non Drug Allergy documented on EMR Reaction Allergy Type Onset Date Status MILK (uncoded) Unknown Allergy Activ e REASON [facility]IT [facility] Conversion Encounter Medications Medication SIG (Take, Route, [...] Active Encounters Encounter Location Date Provider Diagnosis [facility] [address] [facility] [address] [facility] [address] [place] [address] 08/26/2024 Provider Migration Plan Of Treatment Medication [...] 10/15/2025 02:30:00 PM, [address] [facility], [address], [facility] [place], [address], Progress Notes * Christine BEARDOB: 2 (25 yo F)Acc No.[id number]:08/26/2024 Patient: Arleen Vyas Provider: Benji moreno Migration :2000 A ge:24 Y S ex:Female Date:08/26/2024 Address[address] [place], [id number] Pcp:Yohannes Duarte Subjective: * Chief Complaints: * [...] *Please review and pick correct strength-formulation from Nanalysis options. If intended option is not shown, [...] Electronic signature of Prov siria Migration on 05/21/2025 at 01:31 PM EST Sign off status: Pending * Provider: Benji moreno Migration Date: 0 08/26/2024 Generated for Fortunato neal/Karoline/Feliberto on: 01:31 PM EST
--- OUTSIDE RECORDS SUMMARY | 2024-11-02 11:00 | XMS_ITS ---
Author Organization [facility] Address [address] [place] [address] Care Team Providers Care Child Life Assistant Name Role Phone Yohannes Duarte Primary Care Provider Tanvi Loomis [facility] [phone] REASON FOR VISIT 2 wk FU, med ck. Encounters Encounter Location Date Provider Diagnosis [facility] [address] [place] [address] 11/02/2024 Tanvi Loomis Plan Of Treatment Next Appt Details Provider Name:Tanvi L Radhafernando ce, 10/15/2025 02:30:00 PM, [address], [address], [place], [address], Progress Notes * Christine BEARDOB: 2 (25 yo F)Acc No.[id number]:11/02/2024 Progress Notes Patient: Shailesh Vyasgregg Provider: ANDREW Ruiz :2000 A ge:24 Y S ex:Female Date:11/02/2024 Address:[address] [id number] Pcp:Yohannes Duarte Subjective: * Chief Complaints: * 2 wk FU, med ck. * Electronic signature of Millicent Loomis APRN on 05/21/2025 at 01:30 PM EST Sign off status: Pending * Provider: ANDREW Ruiz Date: 0 11/02/2024 Generated for Fortunato neal/Karoline/Feliberto on: 1 01:30 PM EST
--- OUTSIDE RECORDS SUMMARY | 2025-01-04 11:00 | XMS_ITS ---
Author Organization [facility] Address [address] [place] [address] Care Team Providers Care Disaster Or Damage Control Specialist Name Role Phone Yohannes Duarte Primary Care Provider Tanvi Loomis [phone] REASON FOR VISIT Yearly Encounters Encounter Location Date Provider Diagnosis [facility] [address] [place] [address] 01/04/2025 Tanvi Loomis Plan Of Treatment Next Appt Details Provider Name:Tanvi Jauregui ce, 10/15/2025 02:30:00 PM, [address], [address], [place], [address], Progress Notes * Christine BEARDOB: 2 (25 yo F)Acc No.[id number]:01/04/2025 Progress Notes Patient: Arleen Vyas Provider: ANDREW Ruiz :2000 A ge:24 Y S ex:Female Date:01/04/2025 Address:[address] [id number] Pcp:Yohannes Duarte Subjective: * Chief Complaints: * Y early Billing Information: * Procedure Codes: * Electronic signature of Millicent Loomis APRN on 05/21/2025 at 01:30 PM EST Sign off status: Pending * Provider: ANDREW Ruiz Date: 0 01/04/2025 Generated for Fortunato neal/Karoline/Feliberto on: 1 01:30 PM EST
--- OUTSIDE RECORDS SUMMARY | 2025-01-24 09:45 | XMS_ITS ---
Author Organization [facility] PE D JOSE Address [address] [place] [address] Care Team Providers Care Traffic Control Officer Name Role Phone Yohannes Duarte Primary Care Provider [phone] Tanvi Loomis [facility] [phone] REASON FOR VISIT Annual wellness, med check Encounters Encounter Location Date Provider Diagnosis [place] [address] [address] 01/24/2025 Tanvi Loomis Plan Of Treatment Next Appt Details Provider Name:Tanvi L Shania ce, 10/15/2025 02:30:00 PM, [address], [address], [place], [address], Progress Notes * Christine BEARDOB: 2 (25 yo F)Acc No.[id number]:01/24/2025 Progress Notes Patient: Arleen Vyas Provider: ANDREW Ruiz :2000 A ge:25 Y S ex:Female Date:01/24/2025 Address:[address] [place], [id number] Pcp:Yohannes Duarte Subjective: * Chief Complaints: * A nnual wellness, med check Billing Information: * Procedure Codes: * Electronic signature of Millicent Loomis APRN on 05/21/2025 at 01:30 PM EST Sign off status: Pending * Provider: ANDREW Ruiz Date: 0 01/24/2025 Generated for Fortunato neal/Karoline/Feliberto on: 01:30 PM EST
--- OUTSIDE RECORDS SUMMARY | 2025-04-30 05:00 | XMS_ITS ---
Author Organization [facility], [place] Address [address] [place] [address] Care Team Providers Care Pallet Assembler Name Role Phone Yohannes Duarte Primary Care Provider Tanvi Loomis [phone] Allergies Allergen (clinical drug ingredient) Drug/Non Drug Allergy documented on EMR Reaction Allergy Type Onset Date Status MILK (uncoded) Unknown Allergy Activ e Results Component Value Reference Range Flag Notes LIPID PANEL, STANDARD (7600) Reviewed date:05/03/2025 10:37:03 AM Interpretation: Performing Lab:COURT, gate5-[place] [id number] [facility], [facility] [id number] Deon uFller Notes/Report: NON-FASTING; NON-FASTING; NON-FASTING; NON-FASTING; NON-FAST FASTING:YES FASTING: YES CHOLESTEROL, TOTAL 175 <200 mg/dL N HDL CHOLESTEROL 54 > OR = 50 mg/dL N TRIGLYCERIDES 110 <150 mg/dL N LDL-CHOLESTEROL 100 H Reference range: <100 Desirable range <100 mg/dL for primary prevention; <70 mg/dL for patients with CHD or diabetic patients with > or = 2 CHD risk factors. LDL-C is now calculated using the Amandeep calculation, which is a validated novel method providing better accuracy than the Friedewald equation in the estimation of LDL-C. Nba HUGHES et al. ADRIANA. 2013;310(19): 2660-1840 (http://education.Adlogix/faq/KUH241) CHOL/HDLC RATIO 3.2 <5.0 (calc) N NON HDL CHOLESTEROL 121 <130 mg/dL (calc) N For patients with diabetes plus 1 major ASCVD risk factor, treating to a non-HDL-C goal of <100 mg/dL (LDL-C of <70 mg/dL) is considered a therapeutic option. COMPREHENSIVE METABOLIC PANE L (25626) Reviewed date:05/03/2025 10:37:04 AM Interpretation: Performing Lab:COURT, gate5-Zazoo [id number] AdsWizzteNextGxDX, Cyclos SemiconductorPmjwZT[address] Deon Fuller Notes/Report: NON-FASTING; NON-FASTING; NON-FASTING; NON-FASTING; NON-FAST FASTING:YES FASTING: YES GLUCOSE 78 65-99 mg/dL N Fasting reference interval UREA NITROGEN (BUN) 11 7-25 mg/dL N CREATININE 0.83 0.50-0.96 mg/dL N EGFR 102 > OR = 60 mL/min/1.73m2 N BUN/CREATININE RATIO SEE NOTE: 6-22 (calc) Not Reported: BUN and Creatinine are within reference range. SODIUM 137 135-146 mmol/L N POTASSIUM 4.4 3.5-5.3 mmol/L N CHLORIDE 101 98-110 mmol/L N CARBON DIOXIDE 28 20-32 mmol/L N CALCIUM 9.9 8.6-10.2 mg/dL N PROTEIN, TOTAL 7.9 6.1-8.1 g/dL N ALBUMIN 4.7 3.6-5.1 g/dL N GLOBULIN 3.2 1.9-3.7 g/dL (calc) N ALBUMIN/GLOBULIN RATIO 1.5 1.0-2.5 (calc) N BILIRUBIN, TOTAL 0.5 0.2-1.2 mg/dL N ALKALINE PHOSPHATASE 111 31-125 U/L N AST 21 10-30 U/L N ALT 16 6-29 U/L N CBC (INCLUDES DIFF/PLT) (639 9) Reviewed date:05/03/2025 10:37:04 AM Interpretation: Performing Lab:COURT, gate5-Zazoo [id number] AdsWizztel Synthego, Gravity R&DSwquOG[address] Deon Fuller Notes/Report: NON-FASTING; NON-FASTING; NON-FASTING; NON-FASTING; NON-FAST FASTING:YES FASTING: YES WHITE BLOOD CELL COUNT 10.1 3.8-10.8 Thousand/uL N RED BLOOD CELL COUNT 4.91 3.80-5.10 Million/uL N HEMOGLOBIN 14.5 11.7-15.5 g/dL N HEMATOCRIT 44.0 35.9-46.0 % N MCV 89.6 81.4-101.7 fL N MCH 29.5 27.0-33.0 pg N MCHC 33.0 31.6-35.4 g/dL N RDW 13.0 11.0-15.0 % N PLATELET COUNT 391 140-400 Thousand/uL N MPV 9.9 7.5-12.5 fL N ABSOLUTE NEUTROPHILS 5777 7925-3073 cells/uL N ABSOLUTE LYMPHOCYTES 3505 850-3900 cells/uL N ABSOLUTE MONOCYTES 636 200-950 cells/uL N ABSOLUTE EOSINOPHILS 141 15-500 cells/uL N ABSOLUTE BASOPHILS 40 0-200 cells/uL N NEUTROPHILS 57.2 N LYMPHOCYTES 34.7 N MONOCYTES 6.3 N EOSINOPHILS 1.4 N BASOPHILS 0.4 N HEMOGLOBIN A1c (496) Reviewed date:05/03/2025 10:37:04 AM Interpretation: Performing Lab:COURT, gate5-Gravity R&De1355 OG-[place], AmbassadorObeiPX[address] Deon Fuller Notes/Report: NON-FASTING; NON-FASTING; NON-FASTING; NON-FASTING; NON-FAST FASTING:YES FASTING: YES HEMOGLOBIN A1c 5.9 <5.7 % H diabetes, age, comorbid conditions, and other considerations. This assay result is consistent with an increased risk of diabetes. Currently, no consensus exists regarding use of hemoglobin A1c for diagnosis of diabetes for children. For someone without known diabetes, a hemoglobin A1c value between 5.7% and 6.4% is consistent with prediabetes and should be confirmed with a follow-up test. For someone with known diabetes, a value <7% indicates that their diabetes is well controlled. A1c targets should be individualized based on duration of TSH W/REFLEX TO FT4 (04006) Reviewed date:05/03/2025 10:37:05 AM Interpretation: Performing Lab:COURT, gate5-[id number], Cyclos SemiconductorMjacHD[address] Deon Fuller Notes/Report: NON-FASTING; NON-FASTING; NON-FASTING; NON-FASTING; NON-FAST FASTING:YES FASTING: YES TSH W/REFLEX TO FT4 1.03 N Reference Range > or = 20 Years 0.40-4.50 Ranges First trimester 0.26-2.66 Second trimester 0.55-2.73 Third trimester 0.43-2.91 VITAMIN D,25-OH,TOTAL,IA (17 306) Reviewed date:05/03/2025 10:37:05 AM Interpretation: Performing Lab:CB, gate5-[place] [id number] [facility], [facility] HospitalZoueSW[address] Deon Fuller Notes/Report: NON-FASTING; NON-FASTING; NON-FASTING; NON-FASTING; NON-FAST FASTING:YES FASTING: YES VITAMIN D,25-OH,TOTAL,IA 37 30-100 ng/mL N Vitamin D Status 25-OH Vitamin D: Deficiency: <20 ng/mL Insufficiency: 20 - 29 ng/mL Optimal: > or = 30 ng/mL For 25-OH Vitamin D testing on patients on D2-supplementation and patients for whom quantitation of D2 and D3 fractions is required, the QuestAssureD(TM) 25-OH VIT D, (D2,D3), LC/MS/MS is recommended: order code 00157 (patients >2yrs). See Note 1 Note 1 For additional information, please refer to http://education.Yap/faq/EIS593 (This link is being provided for informational/ educational purposes only.) REASON FOR VISIT Yearly Medications Medication SIG (Take, Route, Frequency, Duration) Notes Start Date End Date Status Omeprazole 20 MG Capsule Delayed Release 1 capsule 1/2 to 1 hour before morning meal Orally daily; Duration: 90 days Active Zoloft 100 MG Tablet 1 tablet Orally Once a day Active ALBUTEROL (EQV-PROAIR HFA) 90 MCG/INH AEROSOL 2 INH INHALED EVERY 6 HOURS PRN; Duration: 30 DAYS *Please review for potential replacement for e-prescription and drug interaction check* Active Pioglitazone HCl-metFORMIN HCl 15-500 MG Tablet 1 tablet with meals Orally daily; Duration: 90 days Active Symbicort 80-4.5 MCG/ACT Aerosol 2 puff(s) inhaled 2 times a day; Duration: 90 days Active Immunizations Vaccine Route Administration Date Status Comme [facility] Boostrix IM Intramuscular 04/30/2025 Administered Social History Tobacco Use: Social History Observation Description Date Details (start date - stop date) Current some da y smoker NA - NA Social History Social History Social Info Question Answer Notes Tobacco Control (Standard) Tobacco use: Current some d ay smoker Additional Findings: Tobacco user e-cigarette Additional Details Category Social Info Options Details Social History 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 Travel outside [place]: no Alcohol: socially Type: , Frequenc y: ,Years: , Determination: Sexually active: yes Recreational drug use: no Exercise: no Home smoke detector use: yes Caffeine: yes frequency:occasi onal Living Will No Problems Problem Type SNOMED Code ICD Code Onset Dates Problem Status W/U Status Risk Notes Problem Morbid obesity (701393315) Severe obesity (BMI >= 40) (E66.01) Active confirmed Problem Body mass index 40+ - morbidly obese (533011543) BMI 40.0-44.9, adult (Z68.41) Active confirmed Problem Mild intermittent asthma (695227343) Mild intermittent asthma without complication (J45.20) Active confirmed Problem Gastroesophageal reflux disease without esophagitis (073346598) Gastroesophageal reflux disease without esophagitis (K21.9) Active confirmed Vital Signs Temperature 97.7 degrees Fahrenheit 04/30/20 25 Blood pressure systolic 112 mm Hg 04/30/20 25 Blood pressure diastolic 86 mm Hg 025 Heart Rate 84 /min 04/30/2025 Height 67 in 04/30/2025 Weight 266 lbs 04/30/2025 BMI 41.66 kg/m2 04/30/2025 Encounters Encounter Location Date Provider Diagnosis [facility] PED JOSE [address] [facility] [address] [place] [address] 04/30/2025 Tanvi Loomis Prediabetes R73.03 ; Routine medical exam Z00.00 ; PCOS (polycystic ovarian syndrome) E28.2 ; Vitamin D deficiency E55.9 ; CUELLAR (nonalcoholic steatohepatitis) K75.81 ; Severe obesity (BMI >= 40) E66.01 ; BMI 40.0-44.9, adult Z68.41 ; MICHAEL (generalized anxiety disorder) F41.1 ; Mild intermittent asthma without complication J45.20 ; Gastroesophageal reflux disease without esophagitis K21.9 and Encounter for immunization Z23 Assessments Encounter Date Diagnosis (ICD Code) Assessment Notes Treatment Notes Treatment Clinical Notes Section Notes 04/30/2025 Prediabetes (ICD-10 - R73.03) Prediabetes: Care Instructions material was published Continue efforts with weight loss. Encouraged exercise outside of work at least 3 days/week and only water to drink. 04/30/2025 Routine medical exam (ICD-10 - Z00.00) Well Visit, Ages 18 to 65: Care Instructions material was published 04/30/2025 PCOS (polycystic ovarian syndrome) (ICD-10 - E28.2) following with JOURNEYMAN OPERATOR ASSISTANT 04/30/2025 Vitamin D deficiency (ICD-10 - E55.9) 04/30/2025 CUELLAR (nonalcoholic steatohepatitis) (ICD-10 - K75.81) continue dietary changes/weight loss 04/30/2025 Severe obesity (BMI >= 40) (ICD-10 - E66.01) 04/30/2025 BMI 40.0-44.9, adult (ICD-10 - Z68.41) complicates all aspects of care but is certainly trending in the right direction 04/30/2025 MICHAEL (generalized anxiety disorder) (ICD-10 - F41.1) sertraline, Behavioral Health following 04/30/2025 Mild intermittent asthma without complication (ICD-10 - J45.20) 04/30/2025 Gastroesophageal reflux disease without esophagitis (ICD-10 - K21.9) would ideally like to wean off of PPI...recommen d trial of 20mg daily and monitor 04/30/2025 Encounter for immunization (ICD-10 - Z23) Plan Of Treatment Medication Medication Name Sig Start Date Stop Date Notes Omeprazole 20 MG Capsule Del ayed Release 1 capsule 1/2 to 1 hour before morning meal Orally daily; Duration: 90 days Pioglitazone HCl-metFORMIN H Cl 15-500 MG Tablet 1 tablet with meals Orally daily; Duration: 90 days Symbicort 80-4.5 MCG/ACT Aerosol 2 puff( s) inhaled 2 times a day; Duration: 90 days Treatment Notes Assessment Notes Prediabetes Prediabetes: Care In structions material was published Routine medical exam Well Visit, Ages 18 to 65: Care Instructions material was published Next Appt Details Follow Up: 6 Months, Reason: Provider Name:Tanvi barrera, 10/15/2025 02:30:00 PM, [address], [address], [place], [address], History and Physical Notes * Examination Category Sub-Category Detail Notes Category Not es Endocrinology HEENT: pharynx and tonsils normal, TM's normal Neck supple, no thyromega ly, no lymphadenopathy, no carotid bruit Heart: Regular Rate and Rhy thm, no murmur, rubs or gallops Lungs: clear to auscultatio n,, no wheezes or crackles, Abdomen: soft, NT/ND, BS pres ent Extremities: pulses 2 plus bilate rally, General Appearance: NAD, obese, pleasant Skin: normal, no rash, Neurologic Exam: Alert and oriented x 3, normal sensation, Thyroid exam: no enlargement Progress Notes * Christine BEARDOB: 2 (25 yo F)Acc No.[id number]:04/30/2025 Progress Notes Patient: Arleen CARTAGENA Provider: ANDREW Ruiz :2000 A ge:25 Y S ex:Female Date:04/30/2025 Address:[facility] [address], [place], [id number] Pcp:Yohannes Duarte Subjective: * Chief Complaints: * 1 . Yearly. * HPI: g en: Presents today for annual exam, medication refills, labs. No acute concerns. Seen by JOURNEYMAN OPERATOR ASSISTANT last month. Stopped OCP simply because she's been on it for many years. + sexually active, on MV daily and not preventing . 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 Following with Behavioral Health at [facility], Raul Dobbs. Anupama, working well but increased today. No s/e. Symbicort BID without breakthrough symptoms. PCOS/Prediabetes - tolerating meds. weight down 2 more pounds. very active at work. Menstrual cycles prettty regular monthly, shorter, normal flow GERD - willing to try lower dose PPI Living with MGM and MGF a nd extended family. * ROS: R ESPIRATORY: Reviewed, No Symptoms Reported: Y es. C ARDIOLOGY: Reviewed, No Symptoms Reported: Y es. C ONSTITUTIONAL: Reviewed, No Symptoms Reported: Y es. D ERMATOLOGY: no R alfred. E NDOCRINOLOGY: no F atigue. n o P olydypsia. F EMALE REPRODUCTIVE: See HPI Y es. G ASTROENTEROLOGY: Reviewed, No Symptoms Reported: Y es. H EMATOLOGY/LYMPH: Reviewed, No Symptoms Reported: Y es. M USCULOSKELETAL: Reviewed, No Symptoms Reported: Y es. N EUROLOGY: Reviewed, No Symptoms Reported: Y es. P SYCHOLOGY: See HPI Y es. U ROLOGY: Reviewed, No Symptoms Reported: Y es. * Medical History: * Surgical History: * Family History: F ather: alive. M other: alive. P aternal Grand Father: alive. P aternal Grand Mother: . M aternal Grand Father: alive. M aternal Grand Mother: alive. P aternal uncle: alive, 1 uncle -PE. P aternal aunt: alive. M aternal uncle: alive. S iblings: alive. 1 brother(s) , 2 sister(s) - healthy. . Patient had an aunt on father's side that passed from bone cancer. * Social History: R ecreational drug use: no. Exercise: no. Home smoke detector use: yes. Caffeine: yes, frequency:occasional. Living Will: No. Alcohol: socially, Type: , Frequency: ,Years: , Determination:. Sexually active: yes. Travel outside US: no. 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 Tobacco Control (Standard)?Tobacco use: C urrent some day smoker, A dditional Findings: Tobacco user e -cigarette. * Medications: T aking Zoloft 100 MG Tablet 1 tablet Orally Once a day , Taking ALBUTEROL (EQV- PROAIR HFA) 90 MCG/INH AEROSOL 2 INH INHALED EVERY 6 HOURS PRN , Notes to Pharmacist: *Please review for potential replacement for e-prescription and drug interaction check*, Taking Symbicort 80-4.5 MCG/ACT Aerosol 2 puff(s) inhaled 2 times a day , Taking Pioglitazone HCl-metFORMIN HCl 15-500 MG Tablet TAKE ONE TABLET BY MOUTH EVERY DAY , Taking Omeprazole 40 mg Capsule Delayed Release TAKE ONE CAPSULE BY MOUTH EVERY DAY , Discontinued Leonor FE 1.5/30 WITH IRON 30 MCG-1.5 MG TABLET 1 TAB(S) ORALLY ONCE A DAY , Notes to Pharmacist: *Please review and pick correct strength-formulation from Medispan options. If intended option is not shown, discontinue and re-order from Quick Search*, Discontinued buPROPion HCl ER (XL) 300 mg Tablet Extended Release 24 Hour TAKE ONE TABLET BY MOUTH EVERY DAY IN THE MORNING , Medication List reviewed and reconciled with the patient * Allergies: M ILK. Objective: * Vitals: N urse: aw, Pain: 0, Temp: 97.7, RR: 16, HR: 84, BP: 112/86, Ht: 67, Wt: 266, BMI:41.66. * Examination: E ndocrinology: General Appearance: N AD, obese, pleasant. HEENT: p harynx and tonsils normal, TM's normal. Neck s upple, no thyromegaly, no lymphadenopathy, no carotid bruit. Thyroid exam: n o enlargement. Heart: R egular Rate and Rhythm, no murmur, rubs or gallops. Lungs: c lear to auscultation,, no wheezes or crackles,.? Abdomen: s oft, NT/ND, BS present. Extremities: p ulses 2 plus bilaterally,. Skin: n ormal, no rash,. Neurologic Exam: A lert and oriented x 3, normal sensation,. Assessment: * Assessment: 1. R outine medical exam - Z00.00 (Primary) 2 . P rediabetes - R73.03 ? 3 . P COS (polycystic ovarian syndrome) - E28.2 4 . V itamin D deficiency - E55.9 5 . N ALFRED (nonalcoholic steatohepatitis) - K75.81 6. S evere obesity (BMI >= 40) - E66.01 7 . B UT 40.0-44.9, adult - Z68.41 8 . G AD (generalized anxiety disorder) - F41.1 9 . M ild intermittent asthma without complication - J45.20 1 0. G astroesophageal reflux disease without esophagitis - K21.9 1 1. E ncounter for immunization - Z23? Plan: * Treatment: 2. P rediabetes Refill Pioglitazone HCl-metFORMIN HCl Tablet, 15-500 MG, 1 tablet with meals, Orally, daily, 90 days, 90 Tablet, Refills 1. L AB: LIPID PANEL, STANDARD (7600) Value Reference Range T RIGLYCERIDES 110 <150 - mg/dL * C HOLESTEROL, TOTAL 175 <200 - mg/dL * H DL CHOLESTEROL 54 > OR = 50 - mg/dL * L DL-CHOLESTEROL 100 H - mg/dL (calc) * C HOL/HDLC RATIO 3.2 <5.0 - (calc) * N ON HDL CHOLESTEROL 121 <130 - mg/dL (calc) * Cheri Samaniego 05/03/2025 10:36:51 AM EST > Left patient vm with detailsThis lab was reviewed by Cheri Samaniego on 05/03/2025 at 10:37 AM EST ?LAB: COMPREHENSIVE METABOLIC PANEL (30722)* Value Reference Range G LUCOSE 78 65-99 - mg/dL * U CHADD NITROGEN (BUN) 11 7-25 - mg/dL * C REATININE 0.83 0.50-0.96 - mg/dL * B UN/CREATININE RATIO SEE NOTE: 6-22 - (calc) * S ODIUM 137 135-146 - mmol/L * P OTASSIUM 4.4 3.5-5.3 - mmol/L * C HLORIDE 101 98-110 - mmol/L * C ARBON DIOXIDE 28 20-32 - mmol/L * C ALCIUM 9.9 8.6-10.2 - mg/dL * P ROTEIN, TOTAL 7.9 6.1-8.1 - g/dL * A LBUMIN 4.7 3.6-5.1 - g/dL * G LOBULIN 3.2 1.9-3.7 - g/dL (calc ) * A LBUMIN/GLOBULIN RATIO 1.5 1.0-2.5 - (calc) * B ILIRUBIN, TOTAL 0.5 0.2-1.2 - mg/dL * A LKALINE PHOSPHATASE 111 31-125 - U/L * A ST 21 10-30 - U/L * A LT 16 6-29 - U/L * E GFR 102 > OR = 60 - mL/min/1 .73m2 * Cheri Samaniego 05/03/2025 10:36:51 AM EST > Left patient vm with detailsThis lab was reviewed by Cheri Samaniego on 05/03/2025 at 10:37 AM EST ?LAB: CBC (INCLUDES DIFF/PLT) (3583)* Value Reference Range W BIRDIE BLOOD CELL COUNT 10.1 3.8-10.8 - Thousan d/uL * R ED BLOOD CELL COUNT 4.91 3.80-5.10 - Million/ uL * H EMOGLOBIN 14.5 11.7-15.5 - g/dL * H EMATOCRIT 44.0 35.9-46.0 - % * M CV 89.6 81.4-101.7 - fL * M CH 29.5 27.0-33.0 - pg * M CHC 33.0 31.6-35.4 - g/dL * R DW 13.0 11.0-15.0 - % * P LATELET COUNT 391 140-400 - Thousand/u L * N EUTROPHILS 57.2 - % * A BSOLUTE NEUTROPHILS 5777 2464-4294 - cells/uL * L YMPHOCYTES 34.7 - % * A BSOLUTE LYMPHOCYTES 3505 850-3900 - cells/uL * M ONOCYTES 6.3 - % * A BSOLUTE MONOCYTES 636 200-950 - cells/uL * E OSINOPHILS 1.4 - % * A BSOLUTE EOSINOPHILS 141 15-500 - cells/uL * B ASOPHILS 0.4 - % * A BSOLUTE BASOPHILS 40 0-200 - cells/uL * M PV 9.9 7.5-12.5 - fL * Cheri Samaniego 05/03/2025 10:36:51 AM EST > Left patient vm with detailsThis lab was reviewed by Cheri Samaniego on 05/03/2025 at 10:37 AM EST ?LAB: HEMOGLOBIN A1c (496)* Value Reference Range H EMOGLOBIN A1c 5.9 H <5.7 - % * Cheri Samaniego 05/03/2025 10:36:51 AM EST > Left patient vm with detailsThis lab was reviewed by Cheri Samaniego on 05/03/2025 at 10:37 AM EST ?LAB: TSH W/REFLEX TO FT4 (64698)* Value Reference Range T SH W/REFLEX TO FT4 1.03 - mIU/L * Cheri Samaniego 05/03/2025 10:36:51 AM EST > Left patient vm with detailsThis lab was reviewed by Cheri Samaniego on 05/03/2025 at 10:37 AM EST ?LAB: VITAMIN D,25-OH,TOTAL,IA (15563)* Value Reference Range V ITAMIN D,25-OH,TOTAL,IA 37 30-100 - ng/mL * Cheri Samaniego 05/03/2025 10:36:51 AM EST > Left patient vm with detailsTishs lab was reviewed by Cheri Samaniego on 05/03/2025 at 10:37 AM EST Notes: Prediabetes: Care Instructions material was published?? Clinical Notes: Continue efforts with weight loss. Encouraged exercise outside of work at least 3 days/week and only water to drink.??3.?PCOS (polycystic ovarian syndrome)?LAB: LIPID PANEL, STANDARD (7600)* Value Reference Range T RIGLYCERIDES 110 <150 - mg/dL * C HOLESTEROL, TOTAL 175 <200 - mg/dL * H DL CHOLESTEROL 54 > OR = 50 - mg/dL * L DL-CHOLESTEROL 100 H - mg/dL (calc) * C HOL/HDLC RATIO 3.2 <5.0 - (calc) * N ON HDL CHOLESTEROL 121 <130 - mg/dL (calc) * Cheri Samaniego 05/03/2025 10:36:51 AM EST > Left patient vm with detailsThis lab was reviewed by Cheri Samaniego on 05/03/2025 at 10:37 AM EST ?LAB: COMPREHENSIVE METABOLIC PANEL (41611)* Value Reference Range G LUCOSE 78 65-99 - mg/dL * U CHADD NITROGEN (BUN) 11 7-25 - mg/dL * C REATININE 0.83 0.50-0.96 - mg/dL * B UN/CREATININE RATIO SEE NOTE: 6-22 - (calc) * S ODIUM 137 135-146 - mmol/L * P OTASSIUM 4.4 3.5-5.3 - mmol/L * C HLORIDE 101 98-110 - mmol/L * C ARBON DIOXIDE 28 20-32 - mmol/L * C ALCIUM 9.9 8.6-10.2 - mg/dL * P ROTEIN, TOTAL 7.9 6.1-8.1 - g/dL * A LBUMIN 4.7 3.6-5.1 - g/dL * G LOBULIN 3.2 1.9-3.7 - g/dL (calc ) * A LBUMIN/GLOBULIN RATIO 1.5 1.0-2.5 - (calc) * B ILIRUBIN, TOTAL 0.5 0.2-1.2 - mg/dL * A LKALINE PHOSPHATASE 111 31-125 - U/L * A ST 21 10-30 - U/L * A LT 16 6-29 - U/L * E GFR 102 > OR = 60 - mL/min/1 .73m2 * Cheri Samaniego 05/03/2025 10:36:51 AM EST > Left patient vm with detailsThis lab was reviewed by Cheri Samaniego on 05/03/2025 at 10:37 AM EST ?LAB: CBC (INCLUDES DIFF/PLT) (4036)* Value Reference Range W BIRDIE BLOOD CELL COUNT 10.1 3.8-10.8 - Thousan d/uL * R ED BLOOD CELL COUNT 4.91 3.80-5.10 - Million/ uL * H EMOGLOBIN 14.5 11.7-15.5 - g/dL * H EMATOCRIT 44.0 35.9-46.0 - % * M CV 89.6 81.4-101.7 - fL * M CH 29.5 27.0-33.0 - pg * M CHC 33.0 31.6-35.4 - g/dL * R DW 13.0 11.0-15.0 - % * P LATELET COUNT 391 140-400 - Thousand/u L * N EUTROPHILS 57.2 - % * A BSOLUTE NEUTROPHILS 5777 7576-5975 - cells/uL * L YMPHOCYTES 34.7 - % * A BSOLUTE LYMPHOCYTES 3505 850-3900 - cells/uL * M ONOCYTES 6.3 - % * A BSOLUTE MONOCYTES 636 200-950 - cells/uL * E OSINOPHILS 1.4 - % * A BSOLUTE EOSINOPHILS 141 15-500 - cells/uL * B ASOPHILS 0.4 - % * A BSOLUTE BASOPHILS 40 0-200 - cells/uL * M PV 9.9 7.5-12.5 - fL * Cheri Samaniego 05/03/2025 10:36:51 AM EST > Left patient vm with detailsThis lab was reviewed by Cheri Samaniego on 05/03/2025 at 10:37 AM EST ?LAB: HEMOGLOBIN A1c (496)* Value Reference Range H EMOGLOBIN A1c 5.9 H <5.7 - % * Cheri Samaniego 05/03/2025 10:36:51 AM EST > Left patient vm with detailsThis lab was reviewed by Cheri Samaniego on 05/03/2025 at 10:37 AM EST ?LAB: TSH W/REFLEX TO FT4 (30577)* Value Reference Range T SH W/REFLEX TO FT4 1.03 - mIU/L * Cheri Samaniego 05/03/2025 10:36:51 AM EST > Left patient vm with detailsThis lab was reviewed by Cheri Samaniego on 05/03/2025 at 10:37 AM EST ?LAB: VITAMIN D,25-OH,TOTAL,IA (02522)* Value Reference Range V ITAMIN D,25-OH,TOTAL,IA 37 30-100 - ng/mL * Cheri Samaniego 05/03/2025 10:36:51 AM EST > Left patient vm with detailsThis lab was reviewed by Cheri Samaniego on 05/03/2025 at 10:37 AM EST Clinical Notes: following with JOURNEYMAN OPERATOR ASSISTANT??4.?Vitamin D deficiency?LAB: LIPID PANEL, STANDARD (7600)* Value Reference Range T RIGLYCERIDES 110 <150 - mg/dL * C HOLESTEROL, TOTAL 175 <200 - mg/dL * H DL CHOLESTEROL 54 > OR = 50 - mg/dL * L DL-CHOLESTEROL 100 H - mg/dL (calc) * C HOL/HDLC RATIO 3.2 <5.0 - (calc) * N ON HDL CHOLESTEROL 121 <130 - mg/dL (calc) * Cheri Samaniego 05/03/2025 10:36:51 AM EST > Left patient vm with detailsThis lab was reviewed by Cheri Samaniego on 05/03/2025 at 10:37 AM EST ?LAB: COMPREHENSIVE METABOLIC PANEL (87634)* Value Reference Range G LUCOSE 78 65-99 - mg/dL * U CHADD NITROGEN (BUN) 11 7-25 - mg/dL * C REATININE 0.83 0.50-0.96 - mg/dL * B UN/CREATININE RATIO SEE NOTE: 11-12 - (calc) * S ODIUM 137 135-146 - mmol/L * P OTASSIUM 4.4 3.5-5.3 - mmol/L * C HLORIDE 101 98-110 - mmol/L * C ARBON DIOXIDE 28 20-32 - mmol/L * C ALCIUM 9.9 8.6-10.2 - mg/dL * P ROTEIN, TOTAL 7.9 6.1-8.1 - g/dL * A LBUMIN 4.7 3.6-5.1 - g/dL * G LOBULIN 3.2 1.9-3.7 - g/dL (calc ) * A LBUMIN/GLOBULIN RATIO 1.5 1.0-2.5 - (calc) * B ILIRUBIN, TOTAL 0.5 0.2-1.2 - mg/dL * A LKALINE PHOSPHATASE 111 31-125 - U/L * A ST 21 10-30 - U/L * A LT 16 6-29 - U/L * E GFR 102 > OR = 60 - mL/min/1 .73m2 * Cheri Samaniego 05/03/2025 10:36:51 AM EST > Left patient vm with detailsThis lab was reviewed by Cheri Samaniego on 05/03/2025 at 10:37 AM EST ?LAB: CBC (INCLUDES DIFF/PLT) (1099)* Value Reference Range W BIRDIE BLOOD CELL COUNT 10.1 3.8-10.8 - [place] d/uL * R ED BLOOD CELL COUNT 4.91 3.80-5.10 - Million/ uL * H EMOGLOBIN 14.5 11.7-15.5 - g/dL * H EMATOCRIT 44.0 35.9-46.0 - % * M CV 89.6 81.4-101.7 - fL * M CH 29.5 27.0-33.0 - pg * M CHC 33.0 31.6-35.4 - g/dL * R DW 13.0 11.0-15.0 - % * P LATELET COUNT 391 140-400 - Thousand/u L * N EUTROPHILS 57.2 - % * A BSOLUTE NEUTROPHILS 5777 0936-0712 - cells/uL * L YMPHOCYTES 34.7 - % * A BSOLUTE LYMPHOCYTES 3505 850-3900 - cells/uL * M ONOCYTES 6.3 - % * A BSOLUTE MONOCYTES 636 200-950 - cells/uL * E OSINOPHILS 1.4 - % * A BSOLUTE EOSINOPHILS 141 15-500 - cells/uL * B ASOPHILS 0.4 - % * A BSOLUTE BASOPHILS 40 0-200 - cells/uL * M PV 9.9 7.5-12.5 - fL * Cheri Samaniego 05/03/2025 10:36:51 AM EST > Left patient vm with detailsThis lab was reviewed by Cheri Samaniego on 05/03/2025 at 10:37 AM EST ?LAB: HEMOGLOBIN A1c (496)* Value Reference Range H EMOGLOBIN A1c 5.9 H <5.7 - % * Cheri Samaniego 05/03/2025 10:36:51 AM EST > Left patient vm with detailsThis lab was reviewed by Cheri Samaniego on 05/03/2025 at 10:37 AM EST ?LAB: TSH W/REFLEX TO FT4 (16791)* Value Reference Range T SH W/REFLEX TO FT4 1.03 - mIU/L * Cheri Samaniego 05/03/2025 10:36:51 AM EST > Left patient vm with detailsThis lab was reviewed by Cheri Samaniego on 05/03/2025 at 10:37 AM EST ?LAB: VITAMIN D,25-OH,TOTAL,IA (66897)* Value Reference Range V ITAMIN D,25-OH,TOTAL,IA 37 30-100 - ng/mL * Cheri Samaniego 05/03/2025 10:36:51 AM EST > Left patient vm with detailsThis lab was reviewed by Cheri Samaniego on 05/03/2025 at 10:37 AM EST 5.?CUELLAR (nonalcoholic steatohepatitis)?LAB: LIPID PANEL, STANDARD (7600)* Value Reference Range T RIGLYCERIDES 110 <150 - mg/dL * C HOLESTEROL, TOTAL 175 <200 - mg/dL * H DL CHOLESTEROL 54 > OR = 50 - mg/dL * L DL-CHOLESTEROL 100 H - mg/dL (calc) * C HOL/HDLC RATIO 3.2 <5.0 - (calc) * N ON HDL CHOLESTEROL 121 <130 - mg/dL (calc) * Cheri Samaniego 05/03/2025 10:36:51 AM EST > Left patient vm with detailsThis lab was reviewed by Cheri Samaniego on 05/03/2025 at 10:37 AM EST ?LAB: COMPREHENSIVE METABOLIC PANEL (04744)* Value Reference Range G LUCOSE 78 65-99 - mg/dL * U CHADD NITROGEN (BUN) 11 7-25 - mg/dL * C REATININE 0.83 0.50-0.96 - mg/dL * B UN/CREATININE RATIO SEE NOTE: 6-22 - (calc) * S ODIUM 137 135-146 - mmol/L * P OTASSIUM 4.4 3.5-5.3 - mmol/L * C HLORIDE 101 98-110 - mmol/L * C ARBON DIOXIDE 28 20-32 - mmol/L * C ALCIUM 9.9 8.6-10.2 - mg/dL * P ROTEIN, TOTAL 7.9 6.1-8.1 - g/dL * A LBUMIN 4.7 3.6-5.1 - g/dL * G LOBULIN 3.2 1.9-3.7 - g/dL (calc ) * A LBUMIN/GLOBULIN RATIO 1.5 1.0-2.5 - (calc) * B ILIRUBIN, TOTAL 0.5 0.2-1.2 - mg/dL * A LKALINE PHOSPHATASE 111 31-125 - U/L * A ST 21 10-30 - U/L * A LT 16 6-29 - U/L * E GFR 102 > OR = 60 - mL/min/1 .73m2 * Cheri Samaniego 05/03/2025 10:36:51 AM EST > Left patient vm with detailsThis lab was reviewed by Cheri aSmaniego on 05/03/2025 at 10:37 AM EST ?LAB: CBC (INCLUDES DIFF/PLT) (5031)* Value Reference Range W BIRDIE BLOOD CELL COUNT 10.1 3.8-10.8 - Thousan d/uL * R ED BLOOD CELL COUNT 4.91 3.80-5.10 - Million/ uL * H EMOGLOBIN 14.5 11.7-15.5 - g/dL * H EMATOCRIT 44.0 35.9-46.0 - % * M CV 89.6 81.4-101.7 - fL * M CH 29.5 27.0-33.0 - pg * M CHC 33.0 31.6-35.4 - g/dL * R DW 13.0 11.0-15.0 - % * P LATELET COUNT 391 140-400 - Thousand/u L * N EUTROPHILS 57.2 - % * A BSOLUTE NEUTROPHILS 5777 2143-5605 - cells/uL * L YMPHOCYTES 34.7 - % * A BSOLUTE LYMPHOCYTES 3505 850-3900 - cells/uL * M ONOCYTES 6.3 - % * A BSOLUTE MONOCYTES 636 200-950 - cells/uL * E OSINOPHILS 1.4 - % * A BSOLUTE EOSINOPHILS 141 15-500 - cells/uL * B ASOPHILS 0.4 - % * A BSOLUTE BASOPHILS 40 0-200 - cells/uL * M PV 9.9 7.5-12.5 - fL * Cheri Samaniego 05/03/2025 10:36:51 AM EST > Left patient vm with detailsTishs lab was reviewed by Cheri Samaniego on 05/03/2025 at 10:37 AM EST ?LAB: HEMOGLOBIN A1c (496)* Value Reference Range H EMOGLOBIN A1c 5.9 H <5.7 - % * Cheri Samaniego 05/03/2025 10:36:51 AM EST > Left patient vm with detailsThis lab was reviewed by Cheri Samaniego on 05/03/2025 at 10:37 AM EST ?LAB: TSH W/REFLEX TO FT4 (18707)* Value Reference Range T SH W/REFLEX TO FT4 1.03 - mIU/L * Cheri Samaniego 05/03/2025 10:36:51 AM EST > Left patient vm with Pedro Luis lab was reviewed by Cheri Samaniego on 05/03/2025 at 10:37 AM EST ?LAB: VITAMIN D,25-OH,TOTAL,IA (61231)* Value Reference Range V ITAMIN D,25-OH,TOTAL,IA 37 30-100 - ng/mL * Cheri Samaniego 05/03/2025 10:36:51 AM EST > Left patient vm with Pedro Luis lab was reviewed by Cheri Samaniego on 05/03/2025 at 10:37 AM EST Clinical Notes: continue dietary changes/weight loss??6.?BMI 40.0-44.9, adult? Clinical Notes: complicates all aspects of care but is certainly trending in the right direction ?7.?MICHAEL (generalized anxiety disorder)? Clinical Notes: sertraline, Behavioral Health following??8.?Mild intermittent asthma without complication? Refill Symbicort Aerosol, 80-4.5 MCG/ACT, 2 puff(s), inhaled, 2 times a day, 90 days, 3, Refills 1. ?9.?Gastroesophageal reflux disease without esophagitis ? Decrease Omeprazole Capsule Delayed Release, 20 MG, 1 capsule 1/2 to 1 hour before morning meal, Orally, daily, 90 days, 90, Refills 1.?? Clinical Notes: would ideally like to wean off of PPI...recommend trial of 20mg daily and monitor ? * Immunizations: Boostrix : .5 mL (Route: Intramuscular) given by ANNIE Alcantar , AUDREY on Left Deltoid * Procedure Codes: 9 0715 Boostrix, [address] immunization administration through 18 years of age via any route of administration. * Preventive Medicine: Immunizations: I nfluenza d one through employer. T dap D one today in office. Screening / Special Tests: P ap Smear f ollowed by JOURNEYMAN OPERATOR ASSISTANT. * Follow Up: 6 Months * * Sign off status: Completed true * Provider: ANDREW Ruiz Date: 07/01/2024 Generated for Fortunato neal/Karoline/Feliberto on: 01:31 PM EST
--- OUTSIDE RECORDS SUMMARY | 2025-05-21 13:30 | XMS_ITS | Clinical Summary ---
Author Organization [facility] Address [address] [place] [place] [address] Care Team Providers Care Campus President Name Role Phone Yohannes Duarte MD Primary Care Provider [phone] Che Boyer PAN PUSHER Unavailable [phone] Allergies Active Allergy Reactions Criticality Noted Date Comments Lactose Other - please docum ent in the comment field Low 05/11/2022 Gi issues Medications sucralfate (Carafate) 1 g tablet Take 1 tablet (1 g) by mouth 2 (two) times a day. 2 Active pioglitazone-metFO RMIN (ACTOPlus Met) 15-500 MG tablet Take 1 tablet by mouth 1 (one) time each day. 2 Active omeprazole (PriLOSEC) [address] capsule 1 (one) time each day at the same time. Active norgestimate-ethin yl estradiol (Tri-Sprintec) 0.18/0.215/0.25 MG-35 MCG tablet Take 1 tablet by mouth 1 (one) time each day. Active ketoconazole (NIZOral) 2 % shampoo WASH SCALP EVERY OTHER DAY. let sit FOR 5 minutes BEFORE rinsing. follow with regular shampoo. -- FOR EXTERNAL USE ONLY-- 2 Active ferrous sulfate ER (Slow Iron) 140 (45 Fe) MG ER tablet Take by mouth 1 (one) time each day. Active cyanocobalamin (Vitamin B-12) 1000 MCG tablet Take 1 tablet (1,000 mcg) by mouth 1 (one) time each day. Active cetirizine (ZyrTEC) 10 MG tablet 1 (one) time each day at the same time. Active polycarbophil (FiberCon) 625 MG tablet Take 1 tablet (625 mg) by mouth 1 (one) time each day. Active buPROPion XL (Wellbutrin XL) 300 MG 24 hr tablet Take 1 tablet (300 mg) by mouth 1 (one) time each day. 2 Active albuterol (Ventolin HFA) 108 (90 Base) MCG/ACT inhaler 2 puff(s) Active Cranberry 1000 MG capsule Take 1,000 mg by mouth 1 (one) time each day. Active DULoxetine (Cymbalta) [address] capsule TAKE ONE CAPSULE BY MOUTH EVERY DAY (STARTING AFTER completing 20 MG AND 30 MG DOSE) do not crush OR chew 30 capsule 3 Active Zafemy 150-35 MCG/24HR Place on the skin 1 (one) time per week. 150-15 mg 3 Active ondansetron ODT (Zofran-ODT) 4 MG disintegrating tablet Take 1 tablet (4 mg) by mouth 1 (one) time each day if needed. 3 Active Symbicort 80-4.5 MCG/ACT inhaler INHALE TWO PUFFS BY MOUTH TWICE DAILY --RINSE MOUTH AFTER USE-- 3 Active triamcinolone (Nasacort) 55 MCG/ACT nasal inhaler INSTILL 2 SPRAYS IN EACH NOSTRIL EVERY DAY 3 Active Active Problems Problem Noted Date Diagnosed Date Closed compression fracture of lumbar vertebra 1 06/02/2022 04/02/2023 Osteoporosis 02/05/2023 Social History Tobacco Use Types Packs/Day Years Used Date Smoking Tobacco: Never Smokeless Tobacco: Never Tobacco Cessation:Counseling Given: Not Answered Comments:vape Alcohol Use Standard Drinks/Week Comments Never 0 (1 standard drink = 0.6 oz pur e alcohol) PHQ-2 Answer Date Recorded Patient Health Questionnaire-2 Score 1 02/05/2023 PHQ-2A Answer Date Recorded Patient Health Questionnaire-2 Score 1 02/05/2023 Comments Unknown Sex and Gender Information Value Date Recorded Sex Assigned at Not on file Legal Sex Female 6:54 PM EDT Gender Identity Not on file Sexual Orientation Queer 08/17/2022 7: 36 AM EDT Last Filed Vital Signs Vital Sign Reading Time Taken Comments Blood Pressure 116/79 04/02/2023 12:42 PM EST Pulse 83 04/02/2023 12:42 PM EST Temperature 36.7 C (98 F) 08/17/2022 8:26 AM EDT Respiratory Rate 18 04/02/2023 12:42 PM EST Oxygen Saturation 98% 04/02/2023 12:42 PM EST Inhaled Oxygen Concentration - - Weight 122 kg (270 lb) 04/02/2023 12:42 PM EST Height 170.2 cm (5' 7 ) 04/02/2023 12:42 PM EST Body Mass Index 42.29 04/02/2023 12:42 PM EST Plan of Treatment Health Maintenance Due Date Last Done Comments [facility]-HIV Screening 2002 [facility]-Hepatitis C Screening 2002 [facility]-/Child/Adol SDOH Screenings 2002 [facility]-IPV Vaccines (2 of 3 - 4-dose series) 08/26/2006 07/29/2006 [facility]-Varicella Vaccines (2 of 2 - 2-dose childhood series) 03/29/2013 01/04/2013 [facility]- SDOH Screenings 01/22/2020 [facility]-Adult SDOH Screenings 01/22/2020 [facility]-Hepatitis B Vaccines (1 of 3 - 19+ 3-dose series) 2021 [facility]-DTaP,Tdap,and Td Vaccines (4 - Td or Tdap) 12/29/2022 12/29/2012, 07/29/2006, 02/13/2004 [facility]-Pap Smear 2023 [facility]-Depression Screening 02/06/2024 02/05/2023 [facility]-Bone Density Scan 04/02/2024 04/02/2023 [facility]-BUSUY-29 Vaccine (4 - 2024- season) 2025 06/16/2021, 10/03/2020, 09/12/2020 [facility]-Influenza Vaccine (#1) 01/22/202503/09, 04/08/2021, 02/12/2020, Additional history exists [facility]-Zoster Vaccines (1 of 2) 01/22/2052 01/04/2013 [facility]-HIB Vaccines Completed 02/13/2004 HPV Vaccines Completed 08/26/2013, 04/25, 01/04/2013 [facility]-Hepatitis A Vaccines Completed 02/11/2018, 06/25 [facility]-Obesity Intervention Completed 023, 02/05/2023, 08/17/2022, Additional history exists [facility]-Pneumococcal Vaccine: Pediatrics (0 to 5 Years) and At-Risk Patients (6 to 49 Years) Aged Out No longer eligible based on patient's age to complete this topic [facility]-Rotavirus Vaccines Aged Out No lo nger eligible based on patient's age to complete this topic Procedures Procedure Name Priority Date/Time Associated Diagnosis Comments DEXA BONE DENSITY Routine 04/02/2023 11: 32 AM EST Osteoporosis, unspecified osteoporosis type, unspecified pathological fracture presence from Last 3 Months or Most Recently Relevant to Health Maintenance Results * Dexa Bone Density (04/02/2023 11:32 AM EST) Anatomical Region Laterality Modality L-spine Radiographic Candida ging Narrative 04/03/2023 7:43 PM EST [facility] - Nephrology, Bone & Mineral Metabolism [address] [place] [address] DXA Bone Densitometry Report: [04/02/2023] Subjective BMD test performed using the WorldTVXA DXA System (analysis version: 14.10) manufactured by [employer]. REFERRING PROVIDER: Zeynep Rodriguez, PA CLINICAL INFORMATION: osteoporosis PATIENT NAME: Arleen Palomo PATIENT AGE: 23 y.o. LEGAL SEX: female RADIOGRAPHIC VIEWS: Sites scanned: AP Spine, HIP Right , and HIP Left COMPARISON STUDY: DXA Axial Prior studies are not available for comparison. FINDINGS: Based on Z-score (males under 50 years of age or premenopausal females) the diagnosis is Bone density within the expected range for age TREATMENT RECOMMENDATIONS: Work up for secondary osteoporosis and metabolic bone disease could be considered based on clinical indications. Additional w/u could include a VFA and forearm BMD Treatment decisions may be based on clinical considerations. Suggest general measures to optimize calcium and vitamin D status, fall prevention measures and reduce fracture risk. Consider repeating this study in 2 year(s) or as clinically indicated to assess bone density change or response to treatment (should be performed on the same DXA scanner to allow for direct comparison and calculation of change in BMD). Zeynep HAQUE IMG DXA PROCEDURES Final Resul t from Last 3 Months or Most Recently Relevant to Health Maintenance Insurance [employer] Care Teams Campus President Relationship Specialty Start Date End Date Yohannes Duarte MD [facility] [address] [id number] PCP - General 10/04/20 Che Boyer, MAILE [address] [facility] [address] [place] [address] Nurse Practitioner Neurosurgery 05/11/22
--- OUTSIDE RECORDS SUMMARY | 2025-05-21 13:30 | XMS_ITS | Patient Health Record ---
Author Organization [facility] JOSE Address [address] [place] [address] Care Team Providers Care Software Intern Name Role Phone Yohannes Duarte Primary Care Provider Tanvi Loomis Unavailable [phone] Migration, Provider Unavailable Unavailable Allergies Allergen (clinical drug ingredient) Drug/Non Drug Allergy documented on EMR Reaction Allergy Type Onset Date Status MILK (uncoded) Unknown Allergy Activ e Results Component Value Reference Range Flag Notes VITAMIN D,25-OH,TOTAL,IA (17 306) Reviewed date:05/03/2025 10:37:05 AM Interpretation: Performing Lab:CB, [facility], [facility] HospitalHnxkVS[address] Deon Fuller Notes/Report: NON-FASTING; NON-FASTING; NON-FASTING; NON-FASTING; [...] D, (D2,D3), LC/MS/MS is recommended: order code 62922 (patients >2yrs). See Note 1 Note 1 For additional information, please refer to http://education.FireDrillMe/faq/XHA607 (This link is being provided for informational/ educational purposes only.) TSH W/REFLEX TO FT4 (38577) Reviewed date:05/03/2025 10:37:05 AM Interpretation: Performing Lab:[facility] [address], [place] PixkJE[address] Deon Fuller Notes/Report: NON-FASTING; NON-FASTING; NON-FASTING; NON-FASTING; NON-FAST FASTING:YES FASTING: YES TSH W/REFLEX TO FT4 1.03 N Reference Range > or = 20 Years 0.40-4.50 Ranges First trimester 0.26-2.66 Second trimester 0.55-2.73 Third trimester 0.43-2.91 HEMOGLOBIN A1c (496) Reviewed date:05/03/2025 10:37:04 AM Interpretation: Performing Lab:[facility] (ServiceCEO), [place]ricksSyulEN[address] Deon Fuller Notes/Report: NON-FASTING; NON-FASTING; NON-FASTING; NON-FASTING; NON-FAST FASTING:YES FASTING: YES HEMOGLOBIN A1c 5.9 <5.7 % H For someone without known diabetes, a hemoglobin A1c value between 5.7% and 6.4% is consistent with prediabetes and should be confirmed with a follow-up test. For someone with known diabetes, a value <7% indicates that their diabetes is well controlled. A1c targets should be individualized based on duration of diabetes, age, comorbid conditions, and other considerations. This assay result is consistent with an increased risk of diabetes. Currently, no consensus exists regarding use of hemoglobin A1c for diagnosis of diabetes for children. CBC (INCLUDES DIFF/PLT) (639 9) Reviewed date:05/03/2025 10:37:04 AM Interpretation: Performing Lab:[facility] [address], [place]bricksHecfZY[address] Deon Fuller Notes/Report: NON-FASTING; NON-FASTING; NON-FASTING; NON-FASTING; [...] 9.9 7.5-12.5 fL N ABSOLUTE NEUTROPHILS 5777 4020-0768 cells/uL N ABSOLUTE LYMPHOCYTES 3505 850-3900 cells/uL N ABSOLUTE MONOCYTES 636 200-950 cells/uL N ABSOLUTE EOSINOPHILS 141 15-500 cells/uL N ABSOLUTE BASOPHILS 40 0-200 cells/uL N NEUTROPHILS 57.2 N LYMPHOCYTES 34.7 N MONOCYTES 6.3 N EOSINOPHILS 1.4 N BASOPHILS 0.4 N COMPREHENSIVE METABOLIC PANE L (58642) Reviewed date:05/03/2025 10:37:04 AM Interpretation: Performing Lab:CB, [facility], United HospitalOwrdUS[address] Deon Fuller Notes/Report: NON-FASTING; NON-FASTING; NON-FASTING; NON-FASTING; [...] U/L N ALT 16 6-29 U/L N LIPID PANEL, STANDARD (7600) Reviewed date:05/03/2025 10:37:03 AM Interpretation: Performing Lab:COURT, [facility] [address], [place] AcunaPlrwFD[address] Deon Fuller Notes/Report: NON-FASTING; NON-FASTING; NON-FASTING; NON-FASTING; [...] equation in the estimation of LDL-C. Nba SS et al. ADRIANA. 2013;310(19): 8827-4706 (http://education.OpenHomes/faq/AGV275) CHOL/HDLC RATIO 3.2 <5.0 (calc) N NON HDL CHOLESTEROL 121 <130 mg/dL (calc) N For patients with diabetes plus 1 major ASCVD risk factor, treating to a non-HDL-C goal of <100 mg/dL (LDL-C of <70 mg/dL) is considered a therapeutic option. Medications Medication SIG (Take, Route, Frequency, Duration) Notes Start Date End Date Status Omeprazole 20 MG Capsule Delayed Release 1 capsule 1/2 to 1 hour before morning meal Orally daily; Duration: 90 days Active Zoloft 100 MG Tablet 1 tablet Orally Once a day Active Pioglitazone HCl-metFORMIN HCl 15-500 MG Tablet 1 tablet with meals Orally daily; Duration: 90 days Active Symbicort 80-4.5 MCG/ACT Aerosol 2 puff(s) inhaled 2 times a day; Duration: 90 days Active ALBUTEROL (EQV-PROAIR HFA) 90 MCG/INH AEROSOL 2 INH INHALED EVERY 6 HOURS PRN; Duration: 30 DAYS *Please review for potential replacement for e-prescription and drug interaction check* Active Immunizations Vaccine Route Administration Date Status Comme nts Adacel (Tdap) IM Intramuscular 12/29/2012 Administered Boostrix IM Intramuscular 04/30/2025 Administered Flublok IM Intramuscular 02/12/2020 Administered Fluvirin--Influenza vaccine 3+ year IM Intramuscular 05/09/2010 Administered FLUZONE 6MO - OLDER IM Intramuscular 03/28/2019 Administer ed Gardasil (HPV4) IM Intramuscular 01/04/2013 Administered Gardasil (HPV4) IM Intramuscular 05/22/2013 Administered Gardasil (HPV4) IM Intramuscular 08/26/2013 Administered Havrix Pediatric 2 Dose IM Intramuscular 07/20/2017 Admini stered Havrix Pediatric 2 Dose IM Intramuscular 02/11/2018 Admini stered Influenza-Fluzone 3+years (NON-MEDICARE) IM Intramuscular 04/25/2018 Administered Menactra IM Intramuscular 12/29/2012 Administered Menveo IM Intramuscular 02/11/2018 Administered Varivax (Varicella) SC Subcutaneous 01/04/2013 Administere d Social History Tobacco Use: Social History Observation [...] Caffeine: yes frequency:occasi onal Living Will No Section Notes: Lives with MGM who got custo dy of her in ~2013 Lives with MGM who got custo dy of her in Lives with MGM who got custo dy of her in ~2013 Lives with MGM who got custo dy of her in ~2013 Lives with MGM who got custo dy of her in ~2013 Lives with MGM who got custo dy of her in Lives with MGM who got custo dy of her in Lives with MGM who got custo dy of her in ~2013 Lives with MGM who got custo dy of her in ~2013 Lives with MGM who got custo dy of her in Lives with MGM who got custo dy of her in ~2013 Lives with MGM who got custo dy of her in ~2013 Lives with MGM who got custo dy of her in Lives with MGM who got custo dy of her in Lives with MGM who got custo dy of her in Lives with MGM who got custo dy of her in Lives with MGM who got custo dy of her in Lives with MGM who got custo dy of her in Lives with MGM who got custo dy of her in Lives with MGM who got custo dy of her in Lives with MGM who got custo dy of her in Lives with MGM who got custo dy of her in Problems Problem Type SNOMED Code ICD Code Onset Dates Problem Status W/U Status Risk Notes Problem Acanthosis nigricans (426458379) Acanthosis nigricans (L83) Active confirmed Problem Vitamin D deficiency (25991786) Vitamin D deficiency (E55.9) Active confirmed Problem Seasonal allergy (081447233) Seasonal allergies (J30.2) Active confirmed Problem Restless legs (26724840) RLS (restless legs syndrome) (G25.81) Active confirmed Problem Allergic rhinitis (34976079) Chronic allergic rhinitis (J30.9) Active confirmed Problem Body mass index 40+ - morbidly obese (845003541) BMI 40.0-44.9, adult (Z68.41) Active confirmed Problem Chronic pain (82479764) Other chronic pain (G89.29) Active confirmed Problem Lower abdominal pain (41483565) Lower abdominal pain (R10.30) Active confirmed Problem Elevated liver enzymes level (093885101) Elevated liver enzymes (R74.8) Active confirmed Problem Polycystic ovary syndrome (disorder) (321130530) PCOS (polycystic ovarian syndrome) (E28.2) Active confirmed Problem Gastroesophageal reflux disease without esophagitis (709982192) Gastroesophageal reflux disease without esophagitis (K21.9) Active confirmed Problem Mild intermittent asthma (745925129) Mild intermittent asthma without complication (J45.20) Active confirmed Problem Mood disorder (88586443) Mood disorder (F39) Active confirmed Problem Generalized anxiety disorder (64452573) MICHAEL (generalized anxiety disorder) (F41.1) Active confirmed Problem Exacerbation of intermittent asthma (767157849) Mild intermittent asthma with exacerbation (J45.21) Active confirmed Problem CUELALR - Nonalcoholic steatohepatitis (585253079) CUELLAR (nonalcoholic steatohepatitis) (K75.81) Active confirmed Problem Morbid obesity (306921270) Severe obesity (BMI >= 40) (E66.01) Active confirmed Problem Inattention (98502021) Inattention (R41.840) Active confirmed Problem Oligomenorrhea (28139200) Oligomenorrhea (N91.5) Active confirmed Problem Prediabetes (105004113) Pre-diabetes (R73.03) Active confirmed Problem Dyspnea (196226960) Exertional shortness of breath (R06.02) Active confirmed Problem Tic disorder (954555) Tic disorder (F95.9) Active confirmed Problem Sleep Disorder (05656256) Non-restorative sleep (G47.8) Active confirmed Problem Moderate major depression, single episode (74922643) Current moderate episode of major depressive disorder without prior episode (F32.1) Active confirmed Problem Degeneration of thoracic intervertebral disc (08414104) Thoracic degenerative disc disease (M51.34) Active confirmed Problem Plain X-ray of chest abnormal (finding) (8351153253) Abnormal CXR (R93.89) Active confirmed Problem Bipolar 2 disorder (80485850) Bipolar 2 disorder (F31.81) Active confirmed Vital Signs Heart Rate 84 /min 04/30/2025 Temperature 97.7 degrees Fahrenheit 04/30/2025 Blood pressure diastolic 86 mm Hg 04/30/2025 Height 67 in 04/30/2025 Blood pressure systolic 112 mm Hg 04/30/2025 Weight 266 lbs 04/30/2025 BMI 41.66 kg/m2 04/30/2025 Encounters Encounter Location Date Provider Diagnosis [facility] [address] [place] [address] 08/26/2024 Provider Migration [facility] [address] [place] [address] 11/23/2024 Tanvi Loomis MICHAEL (generalized anx iety disorder) F41.1 [facility] [address] [place] [address] 04/30/2025 Tanvi Loomis Prediabetes R73.03 ; Routine medical exam Z00.00 ; PCOS (polycystic ovarian syndrome) E28.2 ; Vitamin D deficiency E55.9 ; CUELLAR (nonalcoholic steatohepatitis) K75.81 ; Severe obesity (BMI >= 40) E66.01 ; BMI 40.0-44.9, adult Z68.41 ; MICHAEL (generalized anxiety disorder) F41.1 ; Mild intermittent asthma without complication J45.20 ; Gastroesophageal reflux disease without esophagitis K21.9 and Encounter for immunization Z23 [facility] [address] [place] [address] 10/17/2024 Tanvi Loomis [facility] [address] [place] [address] 03/16/2025 Tanvi Loomis Assessments Encounter Date Diagnosis (ICD Code) Assessment Notes Treatment Notes Treatment Clinical Notes Section Notes 11/23/2024 MICHAEL (generalized anxiety disorder) (ICD-10 - F41.1) discussed that bupropion not always helpful for anxiety symptoms as opposed to depressive symptoms but tolearting well. If no improvement on higher dose would rec trial of SSRI 04/30/2025 Routine medical exam (ICD-10 - Z00.00) Well Visit, Ages 18 to 65: Care Instructions material was published 04/30/2025 Prediabetes (ICD-10 - R73.03) Prediabetes: Care Instructions material was published Continue efforts with weight loss. Encouraged exercise outside of work at least 3 days/week and only water to drink. 04/30/2025 PCOS (polycystic ovarian syndrome) (ICD-10 - E28.2) following with BIOCHEMICAL ENGINEER 04/30/2025 Vitamin D deficiency (ICD-10 - E55.9) [...] immunization (ICD-10 - Z23) Plan Of Treatment Pending Test Test Name Order Date X ray : Chest 02/13/2021 Physical Therapy 02/03/2021 H-CBC with AUTO DIFF 05/09/2010 H-URINE CULTURE 05/09/2010 H-CMP 05/09/2010 H-LIPID PANEL 05/09/2010 H-TSH 05/09/2010 H- SERUM QUAL 10/15/2016 H-INFLUENZAE A & B ANTIBODY 07/14/2017 H-URINALYSIS 05/09/2010 C-URINE CULTURE 06/06/2013 H-TESTOSTERONE 10/15/2016 S-[id number] 10/15/2016 H-CORTISOL 10/15/2016 M-Complete Blood Count Auto Diff 022 M-Ferritin 08/25/2021 M-Vitamin B12 05/23/2020 M-Vitamin B12 01/29/2022 M-Vitamin D 25 Hydroxy 01/29/2022 M-Vitamin D 25 Hydroxy 05/23/2020 Rapid Covid Antigen 04/08/2021 Next Appt Details Provider Name:Tanvi Jauregui ce, 10/15/2025 02:30:00 PM, [address], [place], [address], Insurance Providers Payer Name Payer Address Payer Phone Subscriber Number Group Number Insured Name Patient Relationship to Insured Coverage Start Date [facility]age End Date [facility] [address] [place] [address] [id number] Arleen Palomo Self - patient is the insured Medical (General) History Medical History History ICD Code Morbid obesity History of hypercholesterolemia History of urinary incontine nce & recurrent UTI's (Right kidney smaller than Left)- resolved GERD- resolved Oligomenorrhea, likely PCOS Prediabetes Elevated Liver enzymes Depression CUELLAR Gastric Ulcer Surgical History Surgery Date(Month/Year) Tonsillectomy 2011
--- OUTSIDE RECORDS SUMMARY | 2025-05-21 13:30 | XMS_ITS | Encounter Summary ---
Author Organization [facility] Address [address] [place] [address] Care Team Providers Care Vest Presser Name Role Phone Yohannes Duarte MD Primary Care Provider [phone] Che Boyer CABLE REELER Unavailable Encounter Details Date Type Department Care Team ([facility] st Contact Info) Description 04/14/2022 Orders Only External Location [address] [place] [address] Kenny Wakefield MD [address] [place] [address] Social History Tobacco Use Types Packs/Day Years Used Date Smoking Tobacco: Never Assessed Comments Unknown Sex and Gender Information Value Date Recorded Sex Assigned at Not on file Legal Sex Female 6:54 PM EDT Gender Identity Not on file Sexual Orientation Queer 08/17/2022 7: 36 AM EDT documented as of this encounter Plan of Treatment Not on file documented as of this encounter Procedures Procedure Name Priority Date/Time Associated Diagnosis Comments CT MSK OUTSIDE IMAGES 04/14/2022 7:24 AM EST documented in this encounter Results * CT MSK OUTSIDE IMAGES (04/14/2022 7:24 AM EST) Anatomical Region Laterality Modality Computed Tomogra phy 04/14/2022 7:24 AM EST us Kenny Wakefield MD IMG CT PROCEDURES Final Resu lt documented in this encounter Visit Diagnoses Not on filedocumented in this encounter Care Teams Vest Presser Relationship Specialty Start Date End Date Yohannes Duarte MD [facility] [address] [address] PCP - General 10/04/20 Che Boyer, MAILE [address] [facility] [address] [place] [address] Nurse Practitioner Neurosurgery 05/11/22 documented as of this encounter
--- OUTSIDE RECORDS SUMMARY | 2025-05-21 13:30 | XMS_ITS | Encounter Summary ---
Author Organization [facility] Address [address] [place] [address] Care Team Providers Care Shaker Tender Name Role Phone Yohannes Duarte MD Primary Care Provider [phone] Che Boyer CCO Unavailable [phone] Encounter Details Date Type Department Care Team ([facility] st Contact Info) Description 04/14/2022 Orders Only External Location [address] [place] [address] Kenny Wakefield MD [address] [place] [address] Social History Tobacco Use Types Packs/Day Years [...] Diagnosis Comments CT MSK OUTSIDE IMAGES 04/14/2022 7:21 AM EST documented in this encounter Results * CT MSK OUTSIDE IMAGES (04/14/2022 7:21 AM EST) Anatomical Region Laterality Modality Computed Tomogra phy 04/14/2022 7:21 AM EST us Kenny Wakefield MD IMG CT PROCEDURES Final Resu lt documented in this encounter Visit Diagnoses Not on filedocumented in this encounter Care Teams Shaker Tender Relationship Specialty Start Date End Date Yohannes Duarte MD [facility] [address] [address] PCP - General 10/04/20 Che Boyer, MAILE [address] [facility] [address] [place] [address] Nurse Practitioner Neurosurgery 05/11/22 documented as of this encounter
--- OUTSIDE RECORDS SUMMARY | 2025-05-21 13:31 | XMS_ITS | Clinical Summary ---
Author Organization [facility] Address [address] [place] [address] Care Team Providers Care Clinical Support Associate Name Role Phone Tanvi Loomis APRN Primary Care Provid er Allergies No known active allergies Medications sucralfate (CARAFATE) 1 g tablet Take 1 tablet by mouth 2 (Two) Times a Day. 1 Active pioglitazone-me tFORMIN (ACTOPLUS MET) 15-500 MG per tablet Take 1 tablet by mouth Daily. 1 Active vitamin D (ERGOCALCIFEROL ) 1.25 MG (94497 UT) capsule capsule Take 1 capsule by mouth 1 (One) Time Per Week. 1 Active cetirizine (zyrTEC) 10 MG tablet Take 1 tablet by mouth Daily. Active omeprazole (priLOSEC) 20 MG capsule Take 1 capsule by mouth Daily. Active ferrous sulfate 140 (45 Fe) MG tablet controlled-rele ase tablet Take by mouth Daily With Breakfast. Active ketoconazole (NIZORAL) 2 % shampoo WASH SCALP EVERY OTHER DAY. let sit FOR 5 minutes BEFORE rinsing. follow with regular shampoo. -- FOR EXTERNAL USE ONLY-- 2 Active methocarbamol (ROBAXIN) 500 MG tablet TAKE 1 TO 2 TABLET(S) BY MOUTH THREE TIMES DAILY NEEDED FOR spasm MAY CAUSE DROWSINESS 2 Active buPROPion XL (WELLBUTRIN XL) 300 MG 24 hr tablet Take 1 tablet by mouth Daily. 2 Active vitamin B-12 (CYANOCOBALAMIN ) 1000 MCG tablet Take 1 tablet by mouth Daily. Active norelgestromin- ethinyl estradiol (Zafemy) 150-35 MCG/24HR Active Active Problems Problem Noted Date Diagnosed Date Pre-diabetes 04/29/2021 Assessment & Plan (12/09/2022 7:51 AM EDT): A1c improved to 6.0%. She has been able to lose some weight. Continue weight loss efforts. Assessment & Plan (05/01/2022 11:03 AM EST): A1c has crept up. Continue current meds. Work on diet/exercise/weight loss. Assessment & Plan (10/17/2021 9:58 AM EDT): A1c improved to 6.0%. Continue actoplus met for now. Assessment & Plan (04/29/2021 2:26 PM EST): A1c not too bad at 6.2%. Pioglitazone was just added. Continue this with the metformin. Work on diet/exercise/weight loss. Refer for DM education. Fatty liver 04/29/2021 Assessment & Plan (12/09/2022 7:50 AM EDT): Continue pioglitazone and follow up with gastroenterology. Check LFTs today. Assessment & Plan (05/01/2022 11:07 AM EST): Work on weight loss. Continue pioglitazone. She is seeing instrumental music teacher. They are doing labs on Wednesday. Assessment & Plan (10/17/2021 9:57 AM EDT): On pioglitazone. Seeing GI. Check LFTs today. Assessment & Plan (04/29/2021 2:27 PM EST): Pioglitazone was recently started by GI. We discussed potential for weight gain with this medication. Acanthosis nigricans 04/29/2021 Family History Medical History Relation Name Comments No Known Problems Father Obesity Mother Epilepsy Sister TORI Relation Name Status Comments Father Alive Mother Alive Sister TORI Alive Social History Tobacco Use Types Packs/Day Years Used Date Smoking Tobacco: Never Smokeless Tobacco: Never Tobacco Cessation:Counseling Given: Not Answered Alcohol Use Standard Drinks/Week Comments Never 0 (1 standard drink = 0.6 oz pur e alcohol) Abuse Screen Answer Date Recorded Unsafe at Home or Work/School Not on file Feels Threatened by Someone? Not on file Does Anyone Keep You from Co ntacting Others or Doint Things Outside the Home? Not on file 03/05/2023 Physical Sign of Abuse Present Not on file 1 Housing Stability Answer Date Recorded Current Living Arrangements Not on file 02/21 Potentially Unsafe Housing Conditions Not on christopher e 03/05/2023 Family and Community Support Answer Sylvain e Recorded Help with Day-to-Day Activities Not on file 03/05/2023 Lonely or Isolated Not on file 03/05/2023 Employment Answer Date Recorded Do you want help finding or keeping work or a ria b? Not on file 03/05/2023 Disabilities Answer Date Recorded Concentrating, Remembering, or Making Decisions Difficulty Not on file 03/05/2023 Doing Errands Independently Difficulty Not on fi le 03/05/2023 Education Answer Date Recorded Help with school or training? Not on file Preferred Language Not on file 03/05/2023 Comments Unknown Sex and Gender Information Value Date Recorded Sex Assigned at Not on file Legal Sex Female 3:59 PM EDT Gender Identity Not on file Sexual Orientation Not on file Last Filed Vital Signs Vital Sign Reading Time Taken Comments Blood Pressure 110/60 12/09/2022 7:38 AM EDT Pulse 84 12/09/2022 7:38 AM EDT Temperature - - Respiratory Rate - - Oxygen Saturation 98% 05/01/2022 10:21 AM EST Inhaled Oxygen Concentration - - Weight 122 kg (268 lb) 12/09/2022 7:38 AM EDT Height 170.2 cm (5' 7.01 ) 12/09/2022 7:38 AM ED T Body Mass Index 41.96 12/09/2022 7:38 AM EDT Plan of Treatment Health Maintenance Due Date Last Done Comments Annual Gynecologic Pelvic an d Breast Exam 2002 HPV VACCINES (1 - 3-dose series) 2017 MENINGOCOCCAL B VACCINE (1 o f 2 - Standard) 2018 Pneumococcal Vaccine 0-49 (1 of 2 - PCV) 2021 TDAP/TD VACCINES (1 - Tdap) 2021 ANNUAL PHYSICAL 04/21/2021 HEPATITIS C SCREENING 04/21/2021 INFLUENZA VACCINE 12/22/2024 03/09/2022, , 02/12/2020, Additional history exists Care Teams Clinical Support Associate Relationship Specialty Start Date End Date Tanvi Loomis APRN [address] [facility] [address] [address] PCP - General Family Medicine 01/20/21
--- OUTSIDE RECORDS SUMMARY | 2025-05-21 13:31 | XMS_ITS | Encounter Summary ---
Author Organization [facility] Address [address] [place] [address] Care Team Providers Care Manager Speech Name Role Phone Yohannes Duarte MD Primary Care Provider [phone] Che Boyer MACHINE OR MACHINERY MECHANIC Unavailable [phone] Reason for Referral * Consultation (Routine) - Closed Specialty Diagnoses / Procedures Referred By Contac t Referred To Contact Neurosurgery Diagnoses Compression fracture of L1 lumbar vertebra, with routine healing, subsequent encounter Tanvi Loomis APRN [id number] fax: Referral ID Status Reason Start Date Expiration Date V isits Requested Visits Authorized [id number] Closed Specialty Services Required 04/21/2022 10/21/2023 1 1 Encounter Details Date Type Department Care Team ([facility] st Contact Info) Description 04/21/2022 [facility] Practice [address] [place] [address] Tanvi Loomis APRN [id number] Compression fracture of L1 lumbar vertebra, with routine healing, subsequent encounter (Primary Dx) Social History Tobacco Use Types Packs/Day Years Used Date Smoking Tobacco: Never Assessed Comments Unknown Sex and Gender Information Value Date Recorded Sex Assigned at Not on file Legal Sex Female 6:54 PM EDT Gender Identity Not on file Sexual Orientation Queer 08/17/2022 7: 36 AM EDT documented as of this encounter Plan of Treatment Scheduled Referrals Name Type Priority Associated Diagnoses Order Schedule Ambulatory Referral to Neurosurgery Outpatient Referral Routine Compression fracture of L1 lumbar vertebra, with routine healing, subsequent encounter Expected: 04/21/2022 (Approximate), Expires: 10/20/2023 documented as of this encounter Visit Diagnoses Diagnosis Compression fracture of L1 lumbar vertebra, with routine healing, subsequent encounter- Primary documented in this encounter Care Teams Manager Speech Relationship Specialty Start Date End Date Yohannes Duarte MD [facility] [address] [address] PCP - General 10/04/20 Che Boyer, MACHINE OR MACHINERY MECHANIC [address] [facility] [address] [place] [address] Nurse Practitioner Neurosurgery 05/11/22 documented as of this encounter
--- OUTSIDE RECORDS SUMMARY | 2025-05-21 13:31 | XMS_ITS | Encounter Summary ---
Author Organization [facility] Address [address] [place] [address] Care Team Providers Care Dog Pound Attendant Name Role Phone Yohannes Duarte MD Primary Care Provider [phone] Che Boyer SED MIDDLE SCHOOL TEACHER Unavailable [phone] Reason for Visit * Reason Comments Med Refill Encounter Details Date Type Department Care Team (Late st Contact Info) Description 09/11/2022 Refill [facility] Interventional Pain Medicine [address] [place] [address] Kenny Cameron MD [address] [facility] [address] [place] [address] Social History Tobacco Use Types Packs/Day Years Used Date Smoking Tobacco: Never Smokeless Tobacco: Never Comments:vape Alcohol Use Standard Drinks/Week Comments Never 0 (1 standard drink = 0.6 oz pur e alcohol) Comments Unknown Sex and Gender Information Value Date Recorded Sex Assigned at Not on file Legal Sex Female 6:54 PM EDT Gender Identity Not on file Sexual Orientation Queer 08/17/2022 7: 36 AM EDT COVID-19 Exposure Response Date Recorded In the last 10 days, have yo u been in contact with someone who was confirmed or suspected to have Coronavirus/COVID-19? No / Unsure 08/17/2022 7:38 AM EDT documented as of this encounter Plan of Treatment Not on file documented as of this encounter Visit Diagnoses Not on filedocumented in this encounter Additional Health Concerns Assessment Noted Time A fall risk assessment has been complete d for the patient 08/17/2022 8:26 AM EDT A Body Mass Index follow-up plan has been documented for the patient 08/17/2022 10:52 AM EDT documented as of this encounter Care Teams Dog Pound Attendant Relationship Specialty Start Date End Date Yohannes Duarte MD [facility] 2A [address] PCP - General 10/04/20 Che Boyer APRN [address] [facility] [address] [place] [address] Nurse Practitioner Neurosurgery 05/11/22 documented as of this encounter
== END 2025-05-21 23:59 | disposition home or self-care (01) ==
LOC: LAB 13:26
PROVIDERS: PCP Internal Medicine Adolescent Medicine; Visit Provider Obstetrics & Gynecology
DX: N92.6 Irregular menstruation, unspecified (principal); Z32.01 Encounter for pregnancy test, result positive
CPT/HCPCS: 36415; 84144; 84702

== ENCOUNTER 2025-05-23 15:33 | Outpatient (CLI) | payer BC, SELFPAY ==
--- OUTSIDE RECORDS SUMMARY | 2024-02-02 06:45 | XMS_ITS ---
Author Organization [facility] Address [address] [place] [address] Care Team Providers Care Valve Assembler Name Role Phone Yohannes Duarte Primary Care Provider Tanvi Loomis [facility] [phone] REASON FOR VISIT reaction to BC patch Encounters Encounter Location Date Provider Diagnosis [facility] [address] [address] 02/02/2024 Tanvi Loomis Plan Of Treatment Next Appt Details Provider Name:Tanvi Jauregui ce, 10/15/2025 02:30:00 PM, [address], [address], [place], [address], Progress Notes * Christine BEARDOB: 2 (25 yo F)Acc No.[id number]:02/02/2024 Progress Notes Patient: Arleen Vyas Provider: ANDREW Ruiz :2000 A ge:24 Y S ex:Female Date:02/02/2024 Address:[address] [place], [id number] Pcp:Yohannes Duarte Subjective: * Chief Complaints: * r eaction to BC patch * Electronic signature of Millicent Loomis APRN on 05/23/2025 at 03:35 PM EST Sign off status: Pending * Provider: ANDREW Ruiz Date: 0 02/02/2024 Generated for Fortunato Barrera/Feliberto on: 1 03:35 PM EST
--- OUTSIDE RECORDS SUMMARY | 2024-07-03 05:00 | XMS_ITS ---
Author Organization [facility] Address [address] [facility] [address] [place] [address] Care Team Providers Care Box Spring Frame Builder Name Role Phone Yohannes Duarte Primary Care Provider Tanvi Loomis [facility] [phone] REASON FOR VISIT 3 month follow up Encounters Encounter Location Date Provider Diagnosis [facility] [address] [place] [address] 07/03/2024 Tanvi Loomis Plan Of Treatment Next Appt Details Provider Name:Tanvi Jauregui ce, 10/15/2025 02:30:00 PM, [address], [address], [place], [place], [address], Progress Notes * Christine BEARDOB: 2 (25 yo F)Acc No.[id number]:07/03/2024 Progress Notes Patient: Arleen Vyas Provider: ANDREW Ruiz :2000 A ge:24 Y S ex:Female Date:07/03/2024 Address:[address] [id number] Pcp:Yohannes Duarte Subjective: * Chief Complaints: * 3 month follow up * Electronic signature of Millicent Loomis APRN on 05/23/2025 at 03:36 PM EST Sign off status: Pending * Provider: ANDREW Ruiz Date: 0 07/03/2024 Generated for Fortunato Barrera/Feliberto on: 1 03:36 PM EST
--- OUTSIDE RECORDS SUMMARY | 2024-08-26 16:30 | XMS_ITS ---
Author Organization [facility] Address [address] [place] [address] Care Team Providers Care Mannequin Refinisher Name Role Phone Yohannes Duarte Primary Care Provider Migration, Provider Unavailable Unavailable Allergies Allergen (clinical drug ingredient) Drug/Non Drug Allergy documented on EMR Reaction Allergy Type Onset Date Status MILK (uncoded) Unknown Allergy Activ e REASON FOR VISIT [facility] Conversion Encounter Medications Medication SIG (Take, Route, Frequency, Duration) Notes Start Date End Date Status ALBUTEROL (EQV-PROAIR HFA) 90 MCG/INH AEROSOL 2 INH INHALED EVERY 6 HOURS PRN; Duration: 30 DAYS *Please review for potential replacement for e-prescription and drug interaction check* Active Pioglitazone HCl-metFORMIN HCl 15-500 MG Tablet 1 tab(s) orally once a day; Duration: 30 days Active Omeprazole 20 MG Capsule Delayed Release 1 cap(s) orally once a day; Duration: 30 day(s) prn Active Cetirizine HCl 10 MG Tablet 1 tab(s) orally once a day; Duration: 30 days Active Ondansetron 4 MG Tablet Disintegrating 1 tab(s) orally every 6 hours as needed; Duration: 10 days prn 07/28/2022 Active Symbicort 80-4.5 MCG/ACT Aerosol 2 puff(s) inhaled 2 times a day; Duration: 30 days Active IRON (OBSOLETE) OTC TABLET 1 PO QD *Please review for potential replacement for e-prescription and drug interaction check* Active Leonor FE 1.530 WITH IRON 30 MCG-1.5 MG TABLET 1 TAB(S) ORALLY ONCE A DAY *Please review and pick correct strength-formulati on from Medispan options. If intended option is not shown, discontinue and re-order from Quick Search* Active Encounters Encounter Location Date Provider Diagnosis [facility] [address] [facility] [address] [facility] [address] [place] [address] 08/26/2024 Provider Migration Plan Of Treatment Medication Medication Name Sig Start Date Stop Date Notes ALBUTEROL (EQV-PROAIR HFA) 90 MCG/INH AEROSOL 2 INH INHALED EVERY 6 HOURS PRN; Duration: 30 DAYS *Please review for potential replacement for e-prescription and drug interaction check* Pioglitazone HCl-metFORMIN HCl 15-500 MG Tablet 1 tab(s) orally once a day; Duration: 30 days Symbicort 80-4.5 MCG/ACT Aerosol 2 puff(s) inhaled 2 times a day; Duration: 30 days Next Appt Details Provider Name:Tanvi Cook Shania ce, 10/15/2025 02:30:00 PM, [address] [facility], [address], [facility] [place], [address], Progress Notes * Christine BEARDOB: 2 (25 yo F)Acc No.[id number]:08/26/2024 Patient: Arleen Vyas Provider: Benji moreno Migration :2000 A ge:24 Y S ex:Female Date:08/26/2024 [address] [place], [id number] Pcp:Yohannes Duarte Subjective: * Chief Complaints: * M ultum To [facility] Conversion Encounter * Medications: T akingHailey FE 1.5/30 WITH IRON 30 MCG-1.5 MG TABLET 1 TAB(S) ORALLY ONCE A DAY , Notes to Pharmacist: *Please review and pick correct strength-formulation from Medispan options. If intended option is not shown, discontinue and re-order from Quick Search*IRON (OBSOLETE) OTC TABLET 1 PO QD , Notes to Pharmacist: *Please review for potential replacement for e-prescription and drug interaction check*Omeprazole 20 MG Capsule Delayed Release 1 cap(s) orally once a day , Notes to Pharmacist: prnOndansetron 4 MG Tablet Disintegrating 1 tab(s) orally every 6 hours as needed , Notes to Pharmacist: prnCetirizine HCl 10 MG Tablet 1 tab(s) orally once a day Taking Leonor FE 1.5/30 WITH IRON 30 MCG-1.5 MG TABLET 1 TAB(S) ORALLY ONCE A DAY , Notes to Pharmacist: *Please review and pick correct strength-formulation from YouNoodle options. If intended option is not shown, discontinue and re-order from Quick Search*Taking IRON (OBSOLETE) OTC TABLET 1 PO QD , Notes to Pharmacist: *Please review for potential replacement for e-prescription and drug interaction check*Taking Omeprazole 20 MG Capsule Delayed Release 1 cap(s) orally once a day , Notes to Pharmacist: prnTaking Ondansetron 4 MG Tablet Disintegrating 1 tab(s) orally every 6 hours as needed , Notes to Pharmacist: prnTaking Cetirizine HCl 10 MG Tablet 1 tab(s) orally once a day * Allergies: M ILK Plan: * Treatment: * Electronic signature of Prov siria Migration on 05/23/2025 at 03:36 PM EST Sign off status: Pending * Provider: Benji moreno Migration Date: 0 08/26/2024 Generated for Fortunato neal/Karoline/Feliberto on: 1 03:36 PM EST
--- OUTSIDE RECORDS SUMMARY | 2024-11-02 11:00 | XMS_ITS ---
Author Organization [facility] Address [address] [place] [address] Care Team Providers Care Cisco Certified Network Associate Name Role Phone Yohannes Duarte Primary Care Provider [phone] Tanvi Loomis [facility] [phone] REASON FOR VISIT 2 wk FU, med ck. Encounters Encounter Location Date Provider Diagnosis [facility] [address] [place] [address] 11/02/2024 Tanvi Loomis Plan Of Treatment Next Appt Details Provider Name:Tanvi L Radhafernando ce, 10/15/2025 02:30:00 PM, [address], [address], [place], [address], Progress Notes * Christine BEARDOB: 2 (25 yo F)Acc No.[id number]:11/02/2024 Progress Notes Patient: Shailesh Vyasgregg Provider: ANDREW Ruiz :2000 A ge:24 Y S ex:Female Date:11/02/2024 Address:[address] [id number] Pcp:Yohannes Duarte Subjective: * Chief Complaints: * 2 wk FU, med ck. * Electronic signature of Millicent Loomis APRN on 05/23/2025 at 03:35 PM EST Sign off status: Pending * Provider: ANDREW Ruiz Date: 0 11/02/2024 Generated for Fortunato neal/Karoline/Feliberto on: 1 03:35 PM EST
--- OUTSIDE RECORDS SUMMARY | 2025-01-04 11:00 | XMS_ITS ---
Author Organization [facility] Address [address] [place] [address] Care Team Providers Care Professor Of Business Name Role Phone Yohannes Duarte Primary Care Provider Tanvi Loomis [facility] [phone] REASON FOR VISIT Yearly Encounters Encounter Location Date Provider Diagnosis [facility] [address] [place] [address] 01/04/2025 Tanvi Loomis Plan Of Treatment Next Appt Details Provider Name:Tanvi Jauregui ce, 10/15/2025 02:30:00 PM, [address], [address], [place], [address], Progress Notes * Christine BEARDOB: 2 (25 yo F)Acc No.[id number]:01/04/2025 Progress Notes Patient: Arleen Vyas Provider: ANDREW Ruiz :2000 A ge:24 Y S ex:Female Date:01/04/2025 Address:[address] [id number] Pcp:Yohannes Duarte Subjective: * Chief Complaints: * Y early Billing Information: * Procedure Codes: * Electronic signature of Millicent Loomis APRN on 05/23/2025 at 03:36 PM EST Sign off status: Pending * Provider: ANDREW Ruiz Date: 0 01/04/2025 Generated for Fortunato neal/Karoline/Feliberto on: 1 03:36 PM EST
--- OUTSIDE RECORDS SUMMARY | 2025-01-24 09:45 | XMS_ITS ---
Author Organization [facility] PE D JOSE Address [address] [place] [address] Care Team Providers Care Occupational Therapist Rehab Manager Name Role Phone Yohannes Duarte Primary Care Provider Tanvi Loomis [facility] [phone] REASON FOR VISIT Annual wellness, med check Encounters Encounter Location Date Provider Diagnosis [place] [address] [address] 01/24/2025 Tanvi Loomis Plan Of Treatment Next Appt Details Provider Name:Tanvi Joey Shania ce, 10/15/2025 02:30:00 PM, [address], [address], [place], [address], Progress Notes * Christine BEARDOB: 2 (25 yo F)Acc No.[id number]:01/24/2025 Progress Notes Patient: Arleen Vyas Provider: ANDREW Ruiz :2000 A ge:25 Y S ex:Female Date:01/24/2025 Address:[address] [place], [id number] Pcp:Yohannes Duarte Subjective: * Chief Complaints: * A nnual wellness, med check Billing Information: * Procedure Codes: * Electronic signature of Millicent Loomis APRN on 05/23/2025 at 03:35 PM EST Sign off status: Pending * Provider: ANDREW Ruiz Date: 0 01/24/2025 Generated for Fortunato neal/Karoline/Feliberto on: 1 03:35 PM EST
--- OUTSIDE RECORDS SUMMARY | 2025-04-30 05:00 | XMS_ITS ---
Author Organization [facility] Address [address] [place] [address] Care Team Providers Care High School Counselor Name Role Phone Yohannes Duarte Primary Care Provider Tanvi Loomis [phone] Allergies Allergen (clinical drug ingredient) Drug/Non Drug Allergy documented on EMR Reaction Allergy Type Onset Date Status MILK (uncoded) Unknown Allergy Activ e Results Component Value Reference Range Flag Notes LIPID PANEL, STANDARD (7600) Reviewed date:05/03/2025 10:37:03 AM Interpretation: Performing Lab:COURT, RentMama-Lawrence Ehje[address] [facility], [facility] ClinicNlvfKS[address] Deon Fuller Notes/Report: NON-FASTING; NON-FASTING; NON-FASTING; NON-FASTING; [...] LDL-C. Nba HUGHES et al. ADRIANA. 2013;310(19): 2312-4368 (http://education.gBox/faq/WOP187) CHOL/HDLC RATIO 3.2 <5.0 (calc) N NON HDL CHOLESTEROL 121 <130 mg/dL (calc) N For patients with diabetes plus 1 major ASCVD risk factor, treating to a non-HDL-C goal of <100 mg/dL (LDL-C of <70 mg/dL) is considered a therapeutic option. COMPREHENSIVE METABOLIC PANE L (29226) Reviewed date:05/03/2025 10:37:04 AM Interpretation: Performing Lab:COURT, RentMama-WooMe [id number] AppointmentCitytePharmaIN, FotechWkujDZ[address] Deon Fuller Notes/Report: NON-FASTING; NON-FASTING; NON-FASTING; NON-FASTING; [...] Reviewed date:05/03/2025 10:37:04 AM Interpretation: Performing Lab:COURT, [employer]ama[employer]WooMe [id number] AppointmentCitytel Ads Click, NVoicePayBflgJT[address] Deon Fuller Notes/Report: NON-FASTING; NON-FASTING; NON-FASTING; NON-FASTING; [...] 9.9 7.5-12.5 fL N ABSOLUTE NEUTROPHILS 5777 9414-7993 cells/uL N ABSOLUTE LYMPHOCYTES 3505 850-3900 cells/uL N ABSOLUTE MONOCYTES 636 200-950 cells/uL N ABSOLUTE EOSINOPHILS 141 15-500 cells/uL N ABSOLUTE BASOPHILS 40 0-200 cells/uL N NEUTROPHILS 57.2 N LYMPHOCYTES 34.7 N MONOCYTES 6.3 N EOSINOPHILS 1.4 N BASOPHILS 0.4 N HEMOGLOBIN A1c (496) Reviewed date:05/03/2025 10:37:04 AM Interpretation: Performing Lab:COURT, RentMama-NVoicePaye[address] [place], AltatechLniwBT[address] Deon Fuller Notes/Report: NON-FASTING; NON-FASTING; NON-FASTING; NON-FASTING; [...] on duration of TSH W/REFLEX TO FT4 (84175) Reviewed date:05/03/2025 10:37:05 AM Interpretation: Performing Lab:COURT, [employer]Mama[address]WooMe [id number], FotechUhisRP[address] Deon Fuller Notes/Report: NON-FASTING; NON-FASTING; NON-FASTING; NON-FASTING; NON-FAST FASTING:YES FASTING: YES TSH W/REFLEX TO FT4 1.03 N Reference Range > or = 20 Years 0.40-4.50 Ranges First trimester 0.26-2.66 Second trimester 0.55-2.73 Third trimester 0.43-2.91 VITAMIN D,25-OH,TOTAL,IA (17 306) Reviewed date:05/03/2025 10:37:05 AM Interpretation: Performing Lab:CB, RentMama-Lavalette Bjtx1171 [facility], [facility] CenterAvcwGU[address] Deon Fuller Notes/Report: NON-FASTING; NON-FASTING; NON-FASTING; NON-FASTING; [...] D, (D2,D3), LC/MS/MS is recommended: order code 59420 (patients >2yrs). See Note 1 Note 1 For additional information, please refer to http://education.Qinging Weekly Flower Delivery/faq/QTV613 (This link is being provided for informational/ [...] Immunizations Vaccine Route Administration Date Status Comme [facility] Boostrix IM Intramuscular 04/30/2025 Administered Social History [...] W/U Status Risk Notes Problem Morbid obesity (138918229) Severe obesity (BMI >= 40) (E66.01) Active confirmed Problem Body mass index 40+ - morbidly obese (004803705) BMI 40.0-44.9, adult (Z68.41) Active confirmed Problem Mild intermittent asthma (801010319) Mild intermittent asthma without complication (J45.20) Active confirmed Problem Gastroesophageal reflux disease without esophagitis (214885386) Gastroesophageal reflux disease without esophagitis (K21.9) Active confirmed Vital Signs Temperature 97.7 degrees Fahrenheit 04/30/20 25 Blood pressure systolic 112 mm Hg 04/30/20 25 Blood pressure diastolic 86 mm Hg 025 Heart Rate 84 /min 04/30/2025 Height 67 in 04/30/2025 Weight 266 lbs 04/30/2025 BMI 41.66 kg/m2 04/30/2025 Encounters Encounter Location Date Provider Diagnosis [facility] PED JOSE [address] [facility] [address] [place] [address] 04/30/2025 Tanvi Loomis Prediabetes R73.03 ; Routine [...] 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 Yearly. * HPI: g en: Presents today for annual exam, medication refills, labs. No acute concerns. Seen by FACILITIES TECHNICIAN last month. Stopped OCP simply because she's been on it for many years. + sexually active, on MV daily and not preventing . 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 Following with Behavioral Health at [facility], Raul Dobbs. Anupama, working well but [...] active: yes. Travel outside [place]: no. 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 Tobacco Control (Standard)?Tobacco use: C urrent [...] >= 40) - E66.01 7 . B VA 40.0-44.9, adult - Z68.41 8 . G [...] 10:37 AM EST ?LAB: COMPREHENSIVE METABOLIC PANEL (61386)* Value Reference Range G LUCOSE 78 65-99 [...] 10:37 AM EST ?LAB: CBC (INCLUDES DIFF/PLT) (7489)* Value Reference Range W BIRDIE BLOOD CELL [...] - % * A BSOLUTE NEUTROPHILS 5777 0605-7481 - cells/uL * L YMPHOCYTES 34.7 - [...] AM EST ?LAB: TSH W/REFLEX TO FT4 (02937)* Value Reference Range T SH W/REFLEX TO FT4 1.03 - mIU/L * Cheri Samaniego 05/03/2025 10:36:51 AM EST > Left patient vm with detailsThis lab was reviewed by Cheri Samaniego on 05/03/2025 at 10:37 AM EST ?LAB: VITAMIN D,25-OH,TOTAL,IA (39013)* Value Reference Range V ITAMIN D,25-OH,TOTAL,IA 37 [...] 10:37 AM EST ?LAB: COMPREHENSIVE METABOLIC PANEL (32898)* Value Reference Range G LUCOSE 78 65-99 [...] 10:37 AM EST ?LAB: CBC (INCLUDES DIFF/PLT) (5958)* Value Reference Range W BIRDIE BLOOD CELL [...] - % * A BSOLUTE NEUTROPHILS 5777 1250-4405 - cells/uL * L YMPHOCYTES 34.7 - [...] AM EST ?LAB: TSH W/REFLEX TO FT4 (01694)* Value Reference Range T SH W/REFLEX TO FT4 1.03 - mIU/L * Cheri Samaniego 05/03/2025 10:36:51 AM EST > Left patient vm with detailsThis lab was reviewed by Cheri Samaniego on 05/03/2025 at 10:37 AM EST ?LAB: VITAMIN D,25-OH,TOTAL,IA (74002)* Value Reference Range V ITAMIN D,25-OH,TOTAL,IA 37 30-100 - ng/mL * Cheri Samaniego 05/03/2025 10:36:51 AM EST > Left patient vm with detailsThis lab was reviewed by Cheri Samaniego on 05/03/2025 at 10:37 AM EST Clinical Notes: following with FACILITIES TECHNICIAN??4.?Vitamin D deficiency?LAB: LIPID PANEL, STANDARD (7600)* Value [...] 10:37 AM EST ?LAB: COMPREHENSIVE METABOLIC PANEL (55763)* Value Reference Range G LUCOSE 78 65-99 [...] 10:37 AM EST ?LAB: CBC (INCLUDES DIFF/PLT) (99)* Value Reference Range W BIRDIE BLOOD CELL [...] - % * A BSOLUTE NEUTROPHILS 5777 4330-9931 - cells/uL * L YMPHOCYTES 34.7 - [...] AM EST ?LAB: TSH W/REFLEX TO FT4 (63694)* Value Reference Range T SH W/REFLEX TO FT4 1.03 - mIU/L * Cheri Samaniego 05/03/2025 10:36:51 AM EST > Left patient vm with detailsThis lab was reviewed by Cheri Samaniego on 05/03/2025 at 10:37 AM EST ?LAB: VITAMIN D,25-OH,TOTAL,IA (19625)* Value Reference Range V ITAMIN D,25-OH,TOTAL,IA 37 [...] 10:37 AM EST ?LAB: COMPREHENSIVE METABOLIC PANEL (79514)* Value Reference Range G LUCOSE 78 65-99 [...] 10:37 AM EST ?LAB: CBC (INCLUDES DIFF/PLT) (5565)* Value Reference Range W BIRDIE BLOOD CELL [...] - % * A BSOLUTE NEUTROPHILS 5777 6607-8952 - cells/uL * L YMPHOCYTES 34.7 - [...] AM EST ?LAB: TSH W/REFLEX TO FT4 (49681)* Value Reference Range T SH W/REFLEX TO FT4 1.03 - mIU/L * Cheri Samaniego 05/03/2025 10:36:51 AM EST > Left patient vm with Pedro Luis lab was reviewed by Cheri Samaniego on 05/03/2025 at 10:37 AM EST ?LAB: VITAMIN D,25-OH,TOTAL,IA (02258)* Value Reference Range V ITAMIN D,25-OH,TOTAL,IA 37 [...] Deltoid * Procedure Codes: 9 0715 Boostrix, 96657 immunization administration through 18 years of age via any route of administration. * Preventive Medicine: Immunizations: I nfluenza d one through employer. T dap D one today in office. Screening / Special Tests: P ap Smear f ollowed by FACILITIES TECHNICIAN. * Follow Up: 6 Months * * Sign off status: Completed true * Provider: ANDREW Ruiz Date: 07/01/2024 Generated for Fortunato neal/Karoline/Feliberto on: 03:36 PM EST
--- OUTSIDE RECORDS SUMMARY | 2025-05-23 15:35 | XMS_ITS | Clinical Summary ---
Author Organization [facility] Address [address] [place] [address] Care Team Providers Care Laborer Shellfish Processing Name Role Phone Yohannes Duarte MD Primary Care Provider [phone] Che Boeyr MACHINE DESIGN ENGINEER Unavailable [phone] Allergies Active Allergy Reactions Criticality Noted Date [...] 02/06/2024 02/05/2023 UKY-Bone Density Scan 04/02/2024 04/02/2023 [id number] Vaccine (4 - 2024- season) 2025 06/16/2021, [...] Candida ging Narrative 04/03/2023 7:43 PM EST [facility] - Nephrology, Bone & Mineral Metabolism [address] [place] [address] DXA Bone Densitometry Report: [04/02/2023] Subjective BMD test performed using the [employer] Systems[employer] DXA System (analysis version: 14.10) manufactured by [employer] REFERRING PROVIDER: Zeynep Rodriguez, PA CLINICAL INFORMATION: [...] Insurance [employer] Care Teams Laborer Shellfish Processing Relationship Specialty Start Date End Date Yohannes Duarte MD [facility] 2A [address] PCP - General 10/04/20 Che Boyer, MAILE [address] [facility] [address] [place] [address] Nurse Practitioner Neurosurgery 05/11/22
--- OUTSIDE RECORDS SUMMARY | 2025-05-23 15:36 | XMS_ITS | Encounter Summary ---
Author Organization [facility] Address [address] [facility] [place] [address] Care Team Providers Care Vulcanizing Press Operator Name Role Phone Yohannes Duarte MD Primary Care Provider [phone] Che Boyer MAINT MECHANIC Unavailable [phone] Encounter Details Date Type Department Care Team ([facility] st Contact Info) Description 04/14/2022 Orders Only External Location [address] [place] [address] Kenny Wakefield MD [address] [place] [address] Social History Tobacco Use Types Packs/Day Years [...] on filedocumented in this encounter Care Teams Vulcanizing Press Operator Relationship Specialty Start Date End Date Yohannes Duarte MD [facility] 2A [address] PCP - General 10/04/20 Che Boyer, MAILE [address] [facility] [address] [place] [address] Nurse Practitioner Neurosurgery 05/11/22 documented as of this encounter
--- OUTSIDE RECORDS SUMMARY | 2025-05-23 15:36 | XMS_ITS | Clinical Summary ---
Author Organization [facility] Address [address] [place] [address] Care Team Providers Care Ancillary Services Manager Name Role Phone Tanvi Loomis APRN Primary Care Provid er Allergies No known active allergies Medications sucralfate (CARAFATE) 1 g tablet Take 1 tablet by mouth 2 (Two) Times a Day. 1 Active pioglitazone-me tFORMIN (ACTOPLUS MET) 15-500 MG per tablet Take 1 tablet by mouth Daily. 1 Active vitamin D (ERGOCALCIFEROL ) 1.25 MG (02403 UT) capsule capsule Take 1 capsule by [...] weight loss. Continue pioglitazone. She is seeing copyright expert. They are doing labs on Wednesday. Assessment [...] , 02/12/2020, Additional history exists Care Teams Ancillary Services Manager Relationship Specialty Start Date End Date Tanvi Loomis APRN [address] [facility] [address] [address] PCP - General Family Medicine 01/20/21
--- OUTSIDE RECORDS SUMMARY | 2025-05-23 15:36 | XMS_ITS | Patient Health Record ---
Author Organization [facility] Address [address] [place] [address] [place] [address] Care Team Providers Care Health Promoter Name Role Phone Yohannes Duarte Primary Care Provider Tanvi Loomis Unavailable [phone] Migration, Provider Unavailable Unavailable Allergies Allergen (clinical drug ingredient) Drug/Non Drug Allergy documented on EMR Reaction Allergy Type Onset Date Status MILK (uncoded) Unknown Allergy Activ e Results Component Value Reference Range Flag Notes LIPID PANEL, STANDARD (7600) Reviewed date:05/03/2025 10:37:03 AM Interpretation: Performing Lab:[facility], [facility] [address], [facility] CenterWgowEP[address] Deon Fuller Notes/Report: NON-FASTING; NON-FASTING; NON-FASTING; NON-FASTING; NON-FAST FASTING:YES FASTING: YES CHOLESTEROL, TOTAL 175 <200 mg/dL N HDL CHOLESTEROL 54 > OR = 50 mg/dL N TRIGLYCERIDES 110 <150 mg/dL N LDL-CHOLESTEROL 100 H estimation of LDL-C. with > or = 2 CHD risk factors. Reference range: <100 calculation, which is a validated novel method providing Nba HUGHES et al. ADRIANA. 2013;310(19): 2838-4570 (http://education.[facility]/faq/MWG544) better accuracy than the Friedewald equation in the <70 mg/dL for patients with CHD or diabetic patients Desirable range <100 mg/dL for primary prevention; LDL-C is now calculated using the [facility] CHOL/HDLC RATIO 3.2 <5.0 (calc) N NON HDL CHOLESTEROL 121 <130 mg/dL (calc) N option. factor, treating to a non-HDL-C goal of <100 mg/dL (LDL-C of <70 mg/dL) is considered a therapeutic For patients with diabetes plus 1 major ASCVD risk [facility] ([address]) Reviewed date:05/03/2025 10:37:04 AM Interpretation: Performing Lab:[facility], [facility] [id number], [place] Deon Fuller Notes/Report: NON-FASTING; NON-FASTING; NON-FASTING; NON-FASTING; NON-FAST FASTING:YES FASTING: YES GLUCOSE 78 65-99 mg/dL N Fasting refer ence interval UREA NITROGEN (BUN) 11 7-25 mg/dL [...] 16 6-29 U/L N CBC (INCLUDES DIFF/PLT) (339 9) Reviewed date:05/03/2025 10:37:04 AM Interpretation: Performing Lab:[facility], [facility] [address], [place]AtyxZK[address] Deno Fuller Notes/Report: NON-FASTING; NON-FASTING; NON-FASTING; NON-FASTING; NON-FAST [...] 9.9 7.5-12.5 fL N ABSOLUTE NEUTROPHILS 5777 1655-5492 cells/uL N ABSOLUTE LYMPHOCYTES 3505 850-3900 cells/uL N ABSOLUTE MONOCYTES 636 200-950 cells/uL N ABSOLUTE EOSINOPHILS 141 15-500 cells/uL N ABSOLUTE BASOPHILS 40 0-200 cells/uL N NEUTROPHILS 57.2 N LYMPHOCYTES 34.7 N MONOCYTES 6.3 N EOSINOPHILS 1.4 N BASOPHILS 0.4 N HEMOGLOBIN A1c (496) Reviewed date:05/03/2025 10:37:04 AM Interpretation: Performing Lab:[facility], [facility] [employer], navigayaPesqDQ[address] Deon Fuller Notes/Report: NON-FASTING; NON-FASTING; NON-FASTING; NON-FASTING; NON-FAST FASTING:YES FASTING: YES HEMOGLOBIN A1c 5.9 <5.7 % H A1c value between 5.7% and 6.4% is consistent with prediabetes and should be confirmed with a targets should be individualized based on duration of This assay result is consistent with an increased risk of diabetes. follow-up test. Currently, no consensus exists regarding use of considerations. indicates that their diabetes is well controlled. A1c hemoglobin A1c for diagnosis of diabetes for children. diabetes, age, comorbid conditions, and other For someone with known diabetes, a value <7% For someone without known diabetes, a hemoglobin TSH W/REFLEX TO FT4 (61135) Reviewed date:05/03/2025 10:37:05 AM Interpretation: Performing Lab:[facility], [facility] [employer], PrecisionDemandMhurQE[address] Deon Fuller Notes/Report: NON-FASTING; NON-FASTING; NON-FASTING; NON-FASTING; NON-FAST FASTING:YES FASTING: YES TSH W/REFLEX TO FT4 1.03 N > or = 20 Years 0.40-4.50 Reference Range First trimester 0.26-2.66 Second trimester 0.55-2.73 Third trimester 0.43-2.91 Ranges VITAMIN D,25-OH,TOTAL,IA (17 306) Reviewed date:05/03/2025 10:37:05 AM Interpretation: Performing Lab:[facility], [facility] [address] [facility], [facility] ClinicVvbyJN[address] Deon Fuller Notes/Report: NON-FASTING; NON-FASTING; NON-FASTING; NON-FASTING; NON-FAST FASTING:YES FASTING: YES VITAMIN D,25-OH,TOTAL,IA 37 30-100 ng/mL N Optimal: > or = 30 ng/mL Vitamin D Status 25-OH Vitamin D: code 18004 (patients >2yrs). See Note 1 D2-supplementation and patients for whom quantitation Deficiency: <20 ng/mL Note 1 For additional information, please refer to Insufficiency: 20 - 29 ng/mL http://education.[employer]/faq/KIE762 (This link is being provided for informational/ educational purposes only.) of D2 and D3 fractions is required, the QuestAssureD(TM) 25-OH VIT D, (D2,D3), LC/MS/MS is recommended: order For 25-OH Vitamin D testing on patients on Medications Medication SIG (Take, Route, Frequency, Duration) [...] W/U Status Risk Notes Problem Acanthosis nigricans (090515759) Acanthosis nigricans (L83) Active confirmed Problem Vitamin D deficiency (53488195) Vitamin D deficiency (E55.9) Active confirmed Problem Seasonal allergy (182436850) Seasonal allergies (J30.2) Active confirmed Problem Restless legs (54362119) RLS (restless legs syndrome) (G25.81) Active confirmed Problem Allergic rhinitis (36016671) Chronic allergic rhinitis (J30.9) Active confirmed Problem Body mass index 40+ - morbidly obese (731666078) BMI 40.0-44.9, adult (Z68.41) Active confirmed Problem Chronic pain (57349210) Other chronic pain (G89.29) Active confirmed Problem Lower abdominal pain (25808458) Lower abdominal pain (R10.30) Active confirmed Problem Elevated liver enzymes level (715922280) Elevated liver enzymes (R74.8) Active confirmed Problem Polycystic ovary syndrome (disorder) (630717308) PCOS (polycystic ovarian syndrome) (E28.2) Active confirmed Problem Gastroesophageal reflux disease without esophagitis (068978176) Gastroesophageal reflux disease without esophagitis (K21.9) Active confirmed Problem Mild intermittent asthma (252374900) Mild intermittent asthma without complication (J45.20) Active confirmed Problem Mood disorder (65678620) Mood disorder (F39) Active confirmed Problem Generalized anxiety disorder (66012374) MICHAEL (generalized anxiety disorder) (F41.1) Active confirmed Problem Exacerbation of intermittent asthma (581360790) Mild intermittent asthma with exacerbation (J45.21) Active confirmed Problem CUELLAR - Nonalcoholic steatohepatitis (083190522) CUELLAR (nonalcoholic steatohepatitis) (K75.81) Active confirmed Problem Morbid obesity (022807430) Severe obesity (BMI >= 40) (E66.01) Active confirmed Problem Inattention (22692380) Inattention (R41.840) Active confirmed Problem Oligomenorrhea (05819613) Oligomenorrhea (N91.5) Active confirmed Problem Prediabetes (383867115) Pre-diabetes (R73.03) Active confirmed Problem Dyspnea (620772184) Exertional shortness of breath (R06.02) Active confirmed Problem Tic disorder (663882) Tic disorder (F95.9) Active confirmed Problem Sleep Disorder (63631786) Non-restorative sleep (G47.8) Active confirmed Problem Moderate major depression, single episode (16443976) Current moderate episode of major depressive disorder without prior episode (F32.1) Active confirmed Problem Degeneration of thoracic intervertebral disc (27485182) Thoracic degenerative disc disease (M51.34) Active confirmed Problem Plain X-ray of chest abnormal (finding) (6182800489) Abnormal CXR (R93.89) Active confirmed Problem Bipolar 2 disorder (83213984) Bipolar 2 disorder (F31.81) Active confirmed Vital Signs Heart Rate 84 /min 04/30/2025 Temperature 97.7 degrees Fahrenheit 04/30/2025 Blood pressure diastolic 86 mm Hg 04/30/2025 Height 67 in 04/30/2025 Blood pressure systolic 112 mm Hg 04/30/2025 Weight 266 lbs 04/30/2025 BMI 41.66 kg/m2 04/30/2025 Encounters Encounter Location Date Provider Diagnosis [facility] [address] [place] [address] 08/26/2024 Provider Migration [facility] [address] [place] [address] 11/23/2024 Tanvi Loomis MICHAEL (generalized anx iety disorder) F41.1 [facility] [address] [place] [address] 04/30/2025 Tanvi Loomis Prediabetes R73.03 ; Routine medical exam Z00.00 ; PCOS (polycystic ovarian syndrome) E28.2 ; Vitamin D deficiency E55.9 ; CUELLAR (nonalcoholic steatohepatitis) K75.81 ; Severe obesity (BMI >= 40) E66.01 ; BMI 40.0-44.9, adult Z68.41 ; MICHAEL (generalized anxiety disorder) F41.1 ; Mild intermittent asthma without complication J45.20 ; Gastroesophageal reflux disease without esophagitis K21.9 and Encounter for immunization Z23 [facility] [address] [place], [place] [address] 10/17/2024 Tanvi Loomis [facility] [address] [place] [address] 03/16/2025 Tanvi Loomis Assessments Encounter Date Diagnosis [...] ovarian syndrome) (ICD-10 - E28.2) following with DYE WORKER 04/30/2025 Vitamin D deficiency (ICD-10 - E55.9) [...] H-URINALYSIS 05/09/2010 C-URINE CULTURE 06/06/2013 H-TESTOSTERONE 10/15/2016 [id number] 10/15/2016 H-CORTISOL 10/15/2016 M-Complete Blood Count Auto Diff 022 M-Ferritin 08/25/2021 M-Vitamin B12 05/23/2020 M-Vitamin B12 01/29/2022 M-Vitamin D 25 Hydroxy 01/29/2022 M-Vitamin D 25 Hydroxy 05/23/2020 Rapid Covid Antigen 04/08/2021 Next Appt Details Provider Name:Tanvi Jauregui ce, 10/15/2025 02:30:00 PM, [address] [place] [facility] [address], [place], [address], Insurance Providers Payer Name Payer Address Payer Phone Subscriber Number Group Number Insured Name Patient Relationship to Insured Coverage Start Date Coverage End Date [facility] [address] [place] [address] [id number] Arleen Palomo Self - patient is the insured Medical (General) History Medical History History ICD Code Morbid obesity History of hypercholesterolemia History of urinary incontine nce & recurrent UTI's (Right kidney smaller than Left)- resolved GERD- resolved Oligomenorrhea, likely PCOS Prediabetes Elevated Liver enzymes Depression CUELLAR Gastric Ulcer Surgical History Surgery Date(Month/Year) Tonsillectomy 2011
--- OUTSIDE RECORDS SUMMARY | 2025-05-23 15:36 | XMS_ITS | Encounter Summary ---
Author Organization [facility] Address [address] [place] [address] Care Team Providers Care Tools Administrator Name Role Phone Yohannes Duarte MD Primary Care Provider [phone] Che Boyer GREENHOUSE FLORIST Unavailable [phone] Reason for Visit * Reason Comments Med Refill Encounter Details Date Type Department Care Team (Late st Contact Info) Description 09/11/2022 Refill [facility] Interventional Pain Medicine [address] [place] [address] Kenny Cameron MD [address] [facility] [address] [place] [address] Social History Tobacco Use Types [...] documented as of this encounter Care Teams Tools Administrator Relationship Specialty Start Date End Date Yohannes Duarte MD [facility] 2A [address] PCP - General 10/04/20 Che Boyer APRN [address] [facility] [address] [place] [address] Nurse Practitioner Neurosurgery 05/11/22 documented as of this encounter
--- OUTSIDE RECORDS SUMMARY | 2025-05-23 15:36 | XMS_ITS | Encounter Summary ---
Author Organization [facility] Address [address] [place] [address] Care Team Providers Care Knife Changer Name Role Phone Yohannes Duarte MD Primary Care Provider [phone] Che Boyer POULTRY VACCINATOR Unavailable [phone] Reason for Referral * Consultation (Routine) - Closed Specialty Diagnoses / Procedures Referred By Contac t Referred To Contact Neurosurgery Diagnoses Compression fracture of L1 lumbar vertebra, with routine healing, subsequent encounter Tanvi Loomis APRN [id number] fax: Referral ID Status Reason Start Date Expiration Date V isits Requested Visits Authorized [id number] Closed Specialty Services Required 04/21/2022 10/21/2023 1 1 Encounter Details Date Type Department Care Team ([facility] st Contact Info) Description 04/21/2022 [facility] [address] [place] [address] Tanvi Loomis APRN [address] Compression fracture of [...] Primary documented in this encounter Care Teams Knife Changer Relationship Specialty Start Date End Date Yohannes Duarte MD [facility] 2A [address] PCP - General 10/04/20 Che Boyer, POULTRY VACCINATOR [address] [facility] [address] [place] [address] Nurse Practitioner Neurosurgery 05/11/22 documented as of this encounter
--- OUTSIDE RECORDS SUMMARY | 2025-05-23 15:36 | XMS_ITS | Encounter Summary ---
Author Organization [facility] Address [address] [place] [address] Care Team Providers Care Regulatory Compliance Officer Name Role Phone Yohannes Duarte MD Primary Care Provider [phone] Che Boyer WHITEPRINTING MACHINE OPERATOR Unavailable [phone] Encounter Details Date Type Department Care Team ([facility] st Contact Info) Description 04/14/2022 Orders Only External Location [address] [place] [address] Kenny Wakefield MD [address] [place] [address] Social History Tobacco Use Types Packs/Day Years [...] on filedocumented in this encounter Care Teams Regulatory Compliance Officer Relationship Specialty Start Date End Date Yohannes Duarte MD [facility] 2A [address] PCP - General 10/04/20 Che Boyer, MAILE [address] [facility] [address] [place] [address] Nurse Practitioner Neurosurgery 05/11/22 documented as of this encounter
== END 2025-05-23 23:59 | disposition home or self-care (01) ==
LOC: LAB 15:33
PROVIDERS: PCP Internal Medicine Adolescent Medicine; Visit Provider Obstetrics & Gynecology
DX: Z32.01 Encounter for pregnancy test, result positive (principal)
CPT/HCPCS: 36415; 84702